=== PATIENT | male | born 1950 | race Native Hawaiian/Other Pacific Islander ===

== ENCOUNTER 2017-09-18 09:59 | Inpatient (IN) | payer MEDICAID ==
[~2017-09-18] VITALS: Ht 175.3 cm; Wt 100.0 kg
[2017-09-18] VITALS (9 sets, daily range): BP systolic 86–142; BP diastolic 54–74; PULSE 70–92; RESP 16–20; TEMP 98.2–99.8; O2SAT 95–100
[~2017-09-18 09:59] MED LIST: 1-ME1LIQ PO; GLIP10TA6 PO; HYDR50TA3 PO; LISI-515 PO; METF-382 PO; [UNRECOGNIZED DRUG - OTHER] SQ
[2017-09-18] MEDS ORDERED: SODIUM CHLORIDE 0.9% FLUSH 10 ML FLUSH IVF PRN (10:15)
--- NOTE | 2017-09-18 10:20 | PD ---
HPI Chief Complaint: Abnormal Results Time Seen by Provider: 10:09 Travel History International Travel<30 days: No Contact w/Intl Traveler<30days: No Traveled to known affect area: No History of Present Illness HPI 67-year-old male presents after being told his blood count was low and to come to the ER. He states this was 2 days ago. He states he came here but then decided to leave before being evaluated. He states that he is not having any black stools, blood in his stool, urine coughing up blood or any other symptoms that he is noticed except for generalized weakness and dizziness. He states that he has not had issues with bleeding in the past that he recalls. Quality is low. He states it was 20%. Duration was told 2 days ago. He states he feels worse when he moves around. He denies other modifying factors. He states he takes a baby aspirin. He denies frequent anti-inflammatory use. PFSH Past Medical History Asthma: No Autoimmune Disease: No Blood Disorders: No Anxiety: Yes Depression: Yes Cancer: No Cardiovascular Problems: Yes (HTN) High Cholesterol: Yes COPD: No Diabetes: Yes Diminished Hearing: No Endocrine: No Gastrointestinal Disorders: No Glaucoma: Yes Genitourinary: No Hepatitis: No Hiatal Hernia: No Hypertension: Yes Immune Disorder: No Musculoskeletal: No Neurologic: No Psychiatric: Yes Reproductive: No Respiratory: Yes ( sleep apnea asthma) Sleep Apnea: Yes Thyroid Disease: No Triglycerides - High: Yes Past Surgical History Genitourinary Surgery: Yes (scrotal surgery) Other Surgery: Yes Social History Alcohol Use: No Tobacco Use: Yes (2ppd) Substance Use: No Allergies-Medications (Allergen,Severity, Reaction): Coded Allergies: Sulfa (Sulfonamide Antibiotics) (Unverified Allergy, Severe, 01/06/17) causes unknown Reported Meds & Prescriptions Reported Meds & Active Scripts Active Lisinopril 20 Mg Tab 20 Mg PO BID Review of Systems Except as stated in HPI: all other systems reviewed are Neg Physical Exam Narrative GENERAL: 67-year-old male in no apparent distress, pale SKIN: Focused skin assessment warm/dry. HEAD: Atraumatic. Normocephalic. EYES: Pupils equal and round. No scleral icterus. No injection or drainage. ENT: No nasal bleeding or discharge. Mucous membranes pink and moist. NECK: Trachea midline. CARDIOVASCULAR: Regular rate and rhythm. RESPIRATORY: No accessory muscle use. Clear to auscultation. Breath sounds equal bilaterally. GASTROINTESTINAL: Abdomen soft, non-tender, nondistended. MUSCULOSKELETAL: No obvious deformities. No clubbing. No cyanosis. RECTAL EXAM: Performed with drop wire operator and after permission. No external hemorrhoid or fissure, stool is brown, non-bloody. NEUROLOGICAL: Awake and alert. No obvious cranial nerve deficits. Motor grossly within normal limits. Normal speech. PSYCHIATRIC: Appropriate mood and affect; insight and judgment normal. Data Data Last Documented VS Vital Signs Date Time Temp Pulse Resp B/P (MAP) Pulse Ox O2 Delivery O2 Flow Rate FiO2 09/18/17 10:18 86 18 98 Room Air 09/18/17 10:18 115/71 (86) 09/18/17 10:03 98.2 Orders Orders Complete Blood Count With Diff (09/18/17 10:14) Comprehensive Metabolic Panel (09/18/17 10:14) Prothrombin Time / Inr (Pt) (09/18/17 10:14) Act Partial Throm Time (Ptt) (09/18/17 10:14) Red Blood Cells (Rbc) (09/18/17 10:14) Ecg Monitoring (09/18/17 10:14) Iv Access Insert/Monitor (09/18/17 10:14) Oximetry (09/18/17 10:14) Sodium Chloride 0.9% Flush (Ns Flush) (09/18/17 10:15) Type And Screen (09/18/17 10:14) Blood Product Administration (09/18/17 10:46) Sodium Chlor 0.9% 250 Ml Inj (Ns 250 Ml (09/18/17 11:00) Labs Laboratory Tests Test 09/18/17 10:20 White Blood Count 6.6 TH/MM3 Red Blood Count 2.70 MIL/MM3 Hemoglobin 7.2 GM/DL Hematocrit 22.4 % Mean Corpuscular Volume 83.1 FL Mean Corpuscular Hemoglobin 26.9 PG Mean Corpuscular Hemoglobin Concent 32.3 % Red Cell Distribution Width 19.0 % Platelet Count 301 TH/MM3 Mean Platelet Volume 7.3 FL CBC Comment AUTO DIFF Differential Total Cells Counted 100 Neutrophils % (Manual) 82 % Band Neutrophils % 1 % Lymphocytes % 11 % Monocytes % 6 % Neutrophils # (Manual) 5.5 TH/MM3 Differential Comment FINAL DIFF MANUAL Platelet Estimate NORMAL Platelet Morphology Comment NORMAL Prothrombin Time 12.5 SEC Prothromb Time International Ratio 1.2 RATIO Activated Partial Thromboplast Time 31.7 SEC Blood Urea Nitrogen 17 MG/DL Creatinine 1.22 MG/DL Random Glucose 332 MG/DL Total Protein 6.9 GM/DL Albumin 2.3 GM/DL Calcium Level 9.5 MG/DL Alkaline Phosphatase 148 U/L Aspartate Amino Transf (AST/SGOT) 18 U/L Alanine Aminotransferase (ALT/SGPT) 21 U/L Total Bilirubin 0.5 MG/DL Sodium Level 131 MEQ/L Potassium Level 5.1 MEQ/L Chloride Level 98 MEQ/L Carbon Dioxide Level 25.2 MEQ/L Anion Gap 8 MEQ/L Estimat Glomerular Filtration Rate 59 ML/MIN MDM Medical Decision Making Medical Screen Exam Complete: Yes Emergency Medical Condition: Yes Medical Record Reviewed: Yes (pmh confirmed) Interpretation(s) CBC & BMP Diagram 09/18/17 10:20 Total Protein 6.9, Albumin 2.3 L, Calcium Level 9.5, Alkaline Phosphatase 148 H , Aspartate Amino Transf (AST/SGOT) 18, Alanine Aminotransferase (ALT/SGPT) 21, Total Bilirubin 0.5 Differential Diagnosis anemia, gi bleed, lab error.... Narrative Course will check labs and reevaluate Patient with confirmation of hemoglobin of 7.2. Will give 2 units of blood and admit to the hospital for further care. HemaPrompt Point of Care Internal Pos. & Neg. Controls: Passed Fecal Specimen Occult Blood: Negative Physician Communication Physician Communication dr gonzalez agrees to admit Diagnosis Primary Impression: Anemia Qualified Codes: D64.9 - Anemia, unspecified Additional Impression: Weakness Admitting Information Admitting Physician Requests: Admit Grisel Bedolla MD Sep 18, 2017 10:20
[2017-09-18 10:37] LABS: HEMATOCRIT 22.4 % (39.0-51.0); HEMOGLOBIN 7.2 GM/DL (13.0-17.0); MEAN CELL VOLUME 83.1 FL (80.0-100.0); MEAN CORPUSCULAR HEMOGLOBIN 26.9 PG (27.0-34.0); MEAN CORPUSCULAR HGB CONC 32.3 % (32.0-36.0); MEAN PLATELET VOLUME 7.3 FL (7.0-11.0); PLATELET COUNT 301 TH/MM3 (150-450); WHITE BLOOD COUNT 6.6 TH/MM3 (4.0-11.0)
[2017-09-18 10:45] LABS: INTERNATIONAL NORMALIZED RATIO 1.2 RATIO; PROTHROMBIN TIME - PATIENT 12.5 SEC (9.8-11.6)
[2017-09-18 10:54] LABS: ALBUMIN 2.3 GM/DL (3.4-5.0); AST (GOT) 18 U/L (15-37); BICARBONATE 25.2 MEQ/L (21.0-32.0); BLOOD UREA NITROGEN 17 MG/DL (7-18); CALCIUM 9.5 MG/DL (8.5-10.1); CHLORIDE 98 MEQ/L (98-107); CREATININE 1.22 MG/DL (0.60-1.30); GLOMERULAR FILTRATION RATE 59 ML/MIN (>89); GLUCOSE,RANDOM 332 MG/DL (74-106); SODIUM (NA) 131 MEQ/L (136-145)
[2017-09-18 10:55] LABS: ALT (GPT) 21 U/L (12-78)
[2017-09-18 10:57] LABS: ALKALINE PHOSPHATASE 148 U/L (45-117); TOTAL BILIRUBIN ADULT 0.5 MG/DL (0.2-1.0); TOTAL PROTEIN 6.9 GM/DL (6.4-8.2)
[2017-09-18] MEDS ORDERED: SODIUM CHLOR 0.9% 250 ML INJ 250 ML IV ONE (11:00)
[2017-09-18 11:14] LABS: BANDS 1 % (0-6); LYMPHOCYTES 11 % (9-44); MONOCYTES 6 % (0-8); NEUTROPHIL # MANUAL DIFF 5.5 TH/MM3 (1.8-7.7); POLYS (SEG NEUTROPHILS) 82 % (16-70)
[2017-09-18] MEDS ORDERED: BISACODYL 10 MG SUPP RECTAL PRN (12:30)
[2017-09-18] MEDS ORDERED: SENNOSIDES 8.6 MG TAB PO PRN (12:30)
[2017-09-18] MEDS ORDERED: LACTULOSE SYRUP 20 GM/30 ML CUP PO PRN (12:30)
[2017-09-18] MEDS ORDERED: SODIUM CHLORIDE 0.9% FLUSH 10 ML FLUSH IV FLUSH PRN (12:30)
[2017-09-18] MEDS ORDERED: NALOXONE HCL 0.4 MG/ML AMP IV PUSH PRN (12:30)
[2017-09-18] MEDS ORDERED: MAGNESIUM HYDROXIDE SUSP 30 ML CUP PO PRN (12:30)
--- NOTE | 2017-09-18 12:44 | HHI.HP ---
[facility] Service [facility] Primary Care Physician Khai Lombardo MD Admission Diagnosis anemia, weakness Diagnoses: Chief Complaint: Dizziness and lightheadedness with anemia Travel History International Travel<30 Days: No Contact w/Intl Traveler <30 Da: No Traveled to Known Affected Are: No History of Present Illness This is a 67-year-old male has been in his usual state of health until a few days ago when he was called by his primary care physician and was asked to go to the hospital because of abnormal lab values. He was told that he is anemic. Patient did not go to the hospital right away but in the last few days, he has been having episodes of dizziness and lightheadedness hence he decided to go to the hospital. Patient denies any chest pain, shortness of breath, nausea , vomiting, palpitations or any bleeding. There is no note of hematuria, melena , hematochezia or any bleeding anywhere else. Patient never had a colonoscopy. Patient admits to having lost 15 pounds in the last 3 months. No history of colon cancer in the family. After sharing the plan with the patient, patient prefers to do the prep and colonoscopy as outpatient. Review of Systems ROS Limitations: Other (All other pertinent systems were reviewed and are negative.) Past Family Social History Past Medical History Diabetes mellitus Hypertension Past Surgical History No previous surgery Reported Medications Lisinopril 20 Mg Tab 20 Mg PO BID Gabapentin 600 Mg Tab 600 Mg PO BID Flomax (Tamsulosin HCl) 0.4 Mg Cap 0.4 Mg PO HS Kombiglyze Xr (Saxagliptin-Metformin ER) 2.5-1,000 Mg Tab 1 Tab PO BID Fenofibrate 48 Mg Tab 48 Mg PO HS Levemir Inj (Insulin Detemir) 1,000 unit/ 10 ML Vial 25 Units SQ DAILY Do not mix with any other Insulin. Allergies: Coded Allergies: Sulfa (Sulfonamide Antibiotics) (Unverified Allergy, Severe, 01/06/17) causes unknown Family History No h/o colon CA DM- sisters, mother Social History Smokes 1 ppd x 40 years No significant alcohol use Physical Exam Vital Signs Vital Signs Date Time Temp Pulse Resp B/P (MAP) Pulse Ox O2 Delivery O2 Flow Rate FiO2 09/18/17 10:18 86 18 98 Room Air 09/18/17 10:18 80 18 115/71 (86) 99 Room Air 09/18/17 10:18 82 18 98 Room Air 09/18/17 10:03 98.2 92 18 127/74 (91) 100 Physical Exam Not in distress, well-nourished, looks stated age PERRL, pale conjunctiva Nose without bleeding Supple neck, no masses or thyromegaly, trachea midline Normal rate and regular rhythm, no murmurs gallops or rubs appreciated. Clear to auscultation and symmetric bilaterally, normal respiratory effort. Normal bowel sounds, soft, non-tender, nondistended, no guarding. Extremities without clubbing, cyanosis, or edema. No rash of generalized distribution. Skin is warm and dry. Dry skin lower back area. AAO x3, no cranial nerve deficits, moves all 4 extremities, no focal neurologic deficits Laboratory Laboratory Tests Test 09/18/17 10:20 White Blood Count 6.6 Red Blood Count 2.70 Hemoglobin 7.2 Hematocrit 22.4 Mean Corpuscular Volume 83.1 Mean Corpuscular Hemoglobin 26.9 Mean Corpuscular Hemoglobin Concent 32.3 Red Cell Distribution Width 19.0 Platelet Count 301 Mean Platelet Volume 7.3 CBC Comment AUTO DIFF Differential Total Cells Counted 100 Neutrophils % (Manual) 82 Band Neutrophils % 1 Lymphocytes % 11 Monocytes % 6 Neutrophils # (Manual) 5.5 Differential Comment FINAL DIFF MANUAL Platelet Estimate NORMAL Platelet Morphology Comment NORMAL Prothrombin Time 12.5 Prothromb Time International Ratio 1.2 Activated Partial Thromboplast Time 31.7 Blood Urea Nitrogen 17 Creatinine 1.22 Random Glucose 332 Total Protein 6.9 Albumin 2.3 Calcium Level 9.5 Alkaline Phosphatase 148 Aspartate Amino Transf (AST/SGOT) 18 Alanine Aminotransferase (ALT/SGPT) 21 Total Bilirubin 0.5 Sodium Level 131 Potassium Level 5.1 Chloride Level 98 Carbon Dioxide Level 25.2 Anion Gap 8 Estimat Glomerular Filtration Rate 59 Result Diagram: 09/18/17 1020 09/18/17 1020 Caprini VTE Risk Assessment Caprini VTE Risk Assessment: Mod/High Risk (score >= 2) Caprini Risk Assessment Model Point Value = 1 Point Value = 2 Point Value = 3 Point Value = 5 Age 41-60 Minor surgery BMI > 25 kg/m2 Swollen legs Varicose veins or History of unexplained or recurrent spontaneous Oral contraceptives or hormone replacement Sepsis (< 1 month) Serious lung disease, including pneumonia (< 1 month) Abnormal pulmonary function Acute myocardial infarction Congestive heart failure (< 1 month) History of inflammatory bowel disease Medical patient at bed rest Age 61-74 Arthroscopic surgery Major open surgery (> 45 min) Laparoscopic surgery (> 45 min) Malignancy Confined to bed (> 72 hours) Immobilizing plaster cast Central venous access Age >= 75 History of VTE Family history of VTE Factor V Leiden Prothrombin [id number] Lupus anticoagulant Anticardiolipin antibodies Elevated serum homocysteine Heparin-induced thrombocytopenia Other congenital or acquired thrombophilia Stroke (< 1 month) Elective arthroplasty Hip, pelvis, or leg fracture Acute spinal cord injury (< 1 month) Prophylaxis Regimen Total Risk Factor Score Risk Level Prophylaxis Regimen 0-1 Low Early ambulation 2 Moderate Order ONE of the following: *Sequential Compression Device (SCD) *Heparin 5000 units SQ BID 3-4 Higher Order ONE of the following medications: *Heparin 5000 units SQ TID *Enoxaparin/Lovenox 40 mg SQ daily (WT < 150 kg, CrCl > 30 mL/min) *Enoxaparin/Lovenox 30 mg SQ daily (WT < 150 kg, CrCl > 10-29 mL/min) *Enoxaparin/Lovenox 30 mg SQ BID (WT < 150 kg, CrCl > 30 mL/min) AND/OR *Sequential Compression Device (SCD) 5 or more Highest Order ONE of the following medications: *Heparin 5000 units SQ TID (Preferred with Epidurals) *Enoxaparin/Lovenox 40 mg SQ daily (WT < 150 kg, CrCl > 30 mL/min) *Enoxaparin/Lovenox 30 mg SQ daily (WT < 150 kg, CrCl > 10-29 mL/min) *Enoxaparin/Lovenox 30 mg SQ BID (WT < 150 kg, CrCl > 30 mL/min) AND *Sequential Compression Device (SCD) Assessment and Plan Assessment and Plan This is a 67-year-old male with history of diabetes and hypertension presenting with symptomatic anemia Symptomatically anemia-patient presented with hemoglobin is 7.2, with dizziness and lightheadedness. Agree with transfusion, 2 units ordered from the emergency department. Patient however does not want to do prep and colonoscopy as inpatient. If patient is asymptomatic after transfusion, possible discharge. Consult gastroenterology to establish care. Hypertension, controlled -continue lisinopril Diabetes mellitus, controlled-continue Levemir, metformin with sliding scale insulin BPH-continue Flomax DVT prophylaxis: SCDs, low risk, pharmacological prophylaxis contraindicated because of possibility of hemorrhage. Letty Griffin MD Sep 18, 2017 12:44
[2017-09-18] MEDS ORDERED: LEVEMIR SQ (13:22)
[2017-09-18] MEDS ORDERED: GABA600T PO (13:22)
[2017-09-18] MEDS ORDERED: FENO48TA PO (13:22)
[2017-09-18] MEDS ORDERED: KOMB2.5T PO (13:22)
[2017-09-18] MEDS ORDERED: TAMS5CAP PO (13:22)
--- NOTE | 2017-09-18 14:02 | PD.CONS ---
HPI History of Present Illness This is a 67 year old obese male who presented to the emergency room on 2017. Patient had been told several days ago per his family physician that he had a low hemoglobin and was anemic and that he needed to go to the hospital for workup. Patient decided to wait several days since he was not feeling that bad before before coming. Over the last 24 hours patient has noted some increased fatigue, dizziness and lightheadedness and is now here for evaluation. Current GI symptoms include heartburn which seems to be worse at night onset for approximately 3 months. Patient states that he does not eat past 5 or 6:00 in the evenings and even water will make his heartburn worse. During that period of time patient did note an increased amount of bloating and gas, but after large amount of burping patient's pain got better. Patient also notes approximately 15 pound weight loss over the past 3 months non- intentional. Currently patient denies any nausea, vomiting, no abdominal pain, no diarrhea or constipation, no hematemesis or melena. Usual bowel movements are daily brown, formed, does not go more than 2 days without defecation. Patient has been a long-term smoker approximately pack a day since the age of 10 , denies any alcohol, no illicit drugs. Patient denies any family history of colon cancer. (Shruthi Brody) PFSH Past Medical History Diabetes mellitus, insulin-dependent Hypertension Tobacco dependence long-term Past Surgical History No previous surgery (Shruthi Brody) Coded Allergies: Sulfa (Sulfonamide Antibiotics) (Unverified Allergy, Severe, 01/06/17) causes unknown Family History DM- sisters, mother No family history of colon cancer Social History Smokes 1 ppd x 40 years+ No significant alcohol use since the No illicit drug (Shruthi Brody) Review of Systems Constitutional: COMPLAINS OF: Fatigue, Weight loss, Dizziness, Change in appetite (Shruthi Brody) GI Exam Vitals I&O Vital Signs Date Time Temp Pulse Resp B/P (MAP) Pulse Ox O2 Delivery O2 Flow Rate FiO2 09/18/17 10:18 86 18 98 Room Air 09/18/17 10:18 80 18 115/71 (86) 99 Room Air 09/18/17 10:18 82 18 98 Room Air 09/18/17 10:03 98.2 92 18 127/74 (91) 100 Laboratory Test 09/18/17 10:20 White Blood Count 6.6 TH/MM3 Red Blood Count 2.70 MIL/MM3 Hemoglobin 7.2 GM/DL Hematocrit 22.4 % Mean Corpuscular Volume 83.1 FL Mean Corpuscular Hemoglobin 26.9 PG Mean Corpuscular Hemoglobin Concent 32.3 % Red Cell Distribution Width 19.0 % Platelet Count 301 TH/MM3 Mean Platelet Volume 7.3 FL CBC Comment AUTO DIFF Differential Total Cells Counted 100 Neutrophils % (Manual) 82 % Band Neutrophils % 1 % Lymphocytes % 11 % Monocytes % 6 % Neutrophils # (Manual) 5.5 TH/MM3 Differential Comment FINAL DIFF MANUAL Platelet Estimate NORMAL Platelet Morphology Comment NORMAL Prothrombin Time 12.5 SEC Prothromb Time International Ratio 1.2 RATIO Activated Partial Thromboplast Time 31.7 SEC Blood Urea Nitrogen 17 MG/DL Creatinine 1.22 MG/DL Random Glucose 332 MG/DL Total Protein 6.9 GM/DL Albumin 2.3 GM/DL Calcium Level 9.5 MG/DL Alkaline Phosphatase 148 U/L Aspartate Amino Transf (AST/SGOT) 18 U/L Alanine Aminotransferase (ALT/SGPT) 21 U/L Total Bilirubin 0.5 MG/DL Sodium Level 131 MEQ/L Potassium Level 5.1 MEQ/L Chloride Level 98 MEQ/L Carbon Dioxide Level 25.2 MEQ/L Anion Gap 8 MEQ/L Estimat Glomerular Filtration Rate 59 ML/MIN Physical Examination HEENT: Pupils round and reactive to light; normocephalic; atraumatic; no jaundice. Speech is clear oral cavity clean NECK: Neck is supple CHEST: No obvious rhonchi or wheezing but does have diminished breath sounds especially in his bases CARDIAC: Regular rate and rhythm without murmur ABDOMEN: Round, large, soft, nondistended, nontender; no hepatosplenomegaly; bowel sounds are present in all four quadrants. EXTREMITIES: No clubbing, cyanosis, or edema. SKIN: Normal; no rash; no jaundice. APPLICATION LEAD: No focal deficits; alert and oriented times three. Mild anxiety (Shruthi Brody) Assessment and Plan Assessment: (1) Anemia ICD Codes: D64.9 - Anemia, unspecified Status: Acute (2) Weakness ICD Codes: R53.1 - Weakness Status: Acute Plan 67-year-old obese male with symptoms of generalized weakness and fatigue and lightheadedness worsened over the last 24 hours. Patient was told by his PCP that he needed to go to the emergency room for a abnormal hemoglobin and anemia but patient decided to wait a few days before coming. Patient's also had a 15 pound weight loss and unintentional decreased appetite over the past 3 months. Patient notes heartburn with some gas and bloating and belching worse at night onset for approximately 3 months patient notes no known food aggregating factors , even water will make him have dyspepsia. No family history of heart disease. No history of EGD or colonoscopy. Patient states Hemoccult in the emergency room was negative he denies any rectal bleeding no diarrhea no constipation no nausea no vomiting. Currently patient is set up to receive 2 units of blood but after discussion considering EGD and colonoscopy patient is requesting to go home and come back and have test done as an outpatient as soon as Thursday. He seems to feel okay other than he is dizziness and lightheadedness, and would rather do the prep at home. Patient has discussed with the ER physician, but decided to do GI consult so he would be familiar with the GI team. Plan Monitor labs with special attention to hemoglobin after transfusion Monitor symptoms of lightheadedness dizziness. Patient initial request was for EGD and colonoscopy sometime next week if possible and be followed by the GI group on an outpatient basis. Further recommendations to follow, spoke with [facility] office so insurance verification and paperwork process for OP EGD/Colonoscopy. Cant be done without precept, so patient has agreed to stay and have early Colonoscopy/EGD done. Called OR , to schedule early am. If possible, patient has personal home issues and is hoping for DC am. Consent for EGD/Colonoscopy in early am. Clear liquids rest of evening. NPO at [place], Ivis prep this pm. This patient will be seen by myself and Dr. Ornelas, note is been done on his behalf (Shruthi Brody) Physician Comments Patient seen and examined Agree with above Continue with current supportive care Monitor labs Plan for an EGD with colonoscopy tomorrow (Sky Ornelas MD) Problem Qualifiers (1) Anemia: Qualified Codes: D64.9 - Anemia, unspecified Shruthi Brody Sep 18, 2017 14:02 Sky Ornelas MD Sep 18, 2017 18:01
[2017-09-18] MEDS ORDERED: GLUCAGON 1 MG/ML VIAL OTHER PRN ×2 (15:00→19:45)
[2017-09-18] MEDS ORDERED: DEXTROSE 50% IN WATER 50 ML VIAL(D50) IV PUSH PRN ×2 (15:00→19:45)
[2017-09-18] MEDS ORDERED: PEG (High)/E-LYTE SOLN 4000 ML BTL PO ONE (16:15)
[2017-09-18] MEDS: DOCUSATE SODIUM 50 MG/SENNA 8.6 MG TAB PO SCH (20:20)
[2017-09-18] MEDS: LOW DOSE INSULIN NOVOLOG SUPPLEMENTAL SCALE SQ SCH (20:21)
[2017-09-18] MEDS: LISINOPRIL 20 MG TAB PO SCH (20:21)
[2017-09-18] MEDS: GABAPENTIN 300 MG CAP PO SCH (20:21)
[2017-09-18] MEDS: SODIUM CHLORIDE 0.9% FLUSH 10 ML FLUSH IV FLUSH SCH (20:22)
[2017-09-18] MEDS ORDERED: INSULIN DETEMIR 100 UNITS/ML VIAL SQ SCH (21:00)
[2017-09-18] MEDS ORDERED: FENOFIBRATE 48 MG TAB PO SCH (21:00)
[2017-09-18] MEDS ORDERED: TAMSULOSIN HCL 0.4 MG CAP PO SCH (21:00)
[2017-09-18] MEDS ORDERED: KOMBIGLYZE PO SCH (21:00)
[2017-09-19] MEDS ORDERED: INSULIN HUMAN REGULAR 1,000 UNITS/10 ML VIAL SQ PRN (01:15)
[2017-09-19] MEDS ORDERED: POVIDONE IODINE 5% (ANTISEPSIS KIT) 4 APPLICATIONS EACH NARE PRN (01:15)
[2017-09-19] MEDS ORDERED: CHLORHEXIDINE GLUCONATE 2 % 1 PACK (2 CLOTHS) TOPICAL PRN (01:15)
[2017-09-19] MEDS ORDERED: SODIUM CHLORID 0.9% 500 ML IV PRN (01:15)
[2017-09-19] MEDS ORDERED: LACTATED RINGER'S 1000 ML IV PRN (01:15)
[2017-09-19] MEDS ORDERED: METOPROLOL TARTRATE 25 MG TAB PO PRN (01:15)
[2017-09-19 01:44] VITALS: BP 108/59; PULSE 75; RESP 18; TEMP 99.6; O2SAT 93
[2017-09-19 03:58] VITALS: BP 90/55; PULSE 68; RESP 18; TEMP 98.7; O2SAT 94
[2017-09-19 06:42] LABS: BICARBONATE 26.2 MEQ/L (21.0-32.0); CALCIUM 9.2 MG/DL (8.5-10.1); CREATININE 1.05 MG/DL (0.60-1.30)
[2017-09-19 06:45] VITALS: BP 108/53; PULSE 73; RESP 19; TEMP 98.9; O2SAT 96
[2017-09-19] MEDS: LOW DOSE INSULIN NOVOLOG SUPPLEMENTAL SCALE SQ SCH ×2 (08:00→12:00)
[2017-09-19] MEDS: SODIUM CHLORIDE 0.9% FLUSH 10 ML FLUSH IV FLUSH SCH (08:00)
[2017-09-19] MEDS ORDERED: INSULIN DETEMIR 100 UNITS/ML VIAL SQ SCH (09:00)
[2017-09-19] MEDS ORDERED: LIDOCAINE HCL 1% PF 5 ML AMPULE ONE (09:15)
--- NOTE | 2017-09-19 10:18 | EKG ---
Date Performed: 09/19/2017 Time Performed: 05:54:16 PTAGE: 67 years EKG: Probable Sinus rhythm Abnormal ECG PREVIOUS TRACING : 09/05/2009 10.09 Since the previous tracing, no significant change noted DOCTOR: Ozzie Reddy Interpretating Date/Time 09/19/2017 10:17:40
--- NOTE | 2017-09-19 10:48 | HHI.PR ---
Subjective Remarks Follow-up symptomatic anemia September 19, 2017-patient seen and examined, currently n.p.o. and had a full panendoscopy. Denies any bleeding. Objective Vitals Vital Signs Date Time Temp Pulse Resp B/P (MAP) Pulse Ox O2 Delivery O2 Flow Rate FiO2 09/19/17 10:15 64 22 93/60 (71) 96 Room Air 09/19/17 10:00 69 23 87/52 (64) 97 Room Air 09/19/17 08:57 98.2 71 24 83/54 (64) 94 Room Air 09/19/17 06:45 98.9 73 19 108/53 (71) 96 09/19/17 03:58 98.7 68 18 90/55 (67) 94 09/19/17 01:44 99.6 75 18 108/59 (75) 93 09/18/17 21:15 98.7 80 20 138/70 (92) 97 09/18/17 21:00 98.9 82 20 142/72 (95) 98 09/18/17 20:03 98.9 78 18 117/66 (83) 98 09/18/17 18:45 99.2 75 17 102/58 95 09/18/17 16:03 99.8 77 16 93/54 96 09/18/17 16:00 99.0 70 16 115/70 (85) 96 09/18/17 15:48 98.2 77 16 86/54 97 09/18/17 14:21 I/O 09/18/17 09/18/17 09/18/17 09/19/17 09/19/17 09/19/17 07:00 15:00 23:00 07:00 15:00 23:00 Intake Total 480 ml 670 ml Balance 480 ml 670 ml Intake Oral 240 ml Packed Cells 350 ml 400 ml Blood Product IV Normal Saline Flush 130 ml 30 ml # Voids 2 # Bowel Movements 0 Result Diagram: 09/18/17 1020 09/19/17 0422 Objective Remarks GENERAL: NAD SKIN: Warm and dry. HEAD: Normocephalic. EYES: No scleral icterus. No injection or drainage. NECK: Supple, trachea midline. No JVD or lymphadenopathy. CARDIOVASCULAR: Regular rate and rhythm without murmurs, gallops, or rubs. RESPIRATORY: Breath sounds equal bilaterally. No accessory muscle use. GASTROINTESTINAL: Abdomen soft, non-tender, nondistended. MUSCULOSKELETAL: No cyanosis, or edema. BACK: Nontender without obvious deformity. No CVA tenderness. A/P Problem List: (1) Symptomatic anemia ICD Code: D64.9 - Anemia, unspecified (2) Normochromic normocytic anemia ICD Code: D64.9 - Anemia, unspecified (3) Diabetes mellitus ICD Code: E11.9 - Diabetes mellitus Status: Acute (4) Hyperlipidemia ICD Code: E78.5 - Hyperlipidemia Status: Acute (5) Neuropathy ICD Code: G62.9 - Neuropathy Status: Acute (6) Hypertension ICD Code: I10 - Hypertension Status: Acute Assessment and Plan 67-year-old man with Symptomatic anemia Normochromic normocytic anemia s/p 2 units PRBCs transfused September 18, 2017 Appreciate input from GI for panendoscopy today September 19, 2017 Continue H&H monitoring and transfuse accordingly Continue PPI Diabetes type 2, hypertension, BPH Continue outpatient medications DVT prophylaxis: Chemical anti prophylaxis is contraindicated secondary to GI bleed Lester Mcconnell MD Sep 19, 2017 10:48
[2017-09-19 11:42] LABS: HEMATOCRIT 25.4 % (39.0-51.0); HEMOGLOBIN 8.6 GM/DL (13.0-17.0)
[2017-09-19 12:00] VITALS: BP 100/61; PULSE 76; RESP 18; TEMP 98.4; O2SAT 92
[2017-09-19] MEDS ORDERED: LIDOCAINE HCL 1% PF 5 ML SYRINGE OTHER ONE (12:00)
[2017-09-19] MEDS ORDERED: PROPOFOL 200 MG/20 ML AMP IV ONE (12:00)
[2017-09-19] MEDS ORDERED: SODIUM CHLORID 0.9% 500 ML INJ 500 ML IV ONE (12:00)
[2017-09-19] MEDS ORDERED: PHENYLEPH/NS 1000 MCG/10 ML SYR IV ONE (12:00)
[2017-09-19] MEDS ORDERED: ePHEDrine/NS 25 MG/5 ML SYRINGE IV ONE (12:00)
[2017-09-19] MEDS: GABAPENTIN 300 MG CAP PO SCH (12:36)
[2017-09-19] MEDS: LISINOPRIL 20 MG TAB PO SCH (12:36)
[2017-09-19] MEDS: DOCUSATE SODIUM 50 MG/SENNA 8.6 MG TAB PO SCH (12:37)
--- NOTE | 2017-09-19 13:25 | HHI.PR ---
Addendum to Inpatient Note Addendum Reason: Additional Documentation Additional Information Discharge patient to home Condition on discharge: Improved Regular Diet as tolerated Ad Jordana activity Rx written:Protonix 40mg Qday Follow-up with primary care physician Lester Mcconnell MD Sep 19, 2017 13:25
[2017-09-19] MEDS ORDERED: PROT40TA PO (13:26)
== END 2017-09-19 14:24 | disposition home or self-care (01) | DRG 812 ==
LOC: NEPE 09:59 → INTOOBSV 12:21 → NEDA 12:21 → N06A 14:20 → OBSVTOIN 14:46
PROVIDERS: ADMIT Hospitalist; ATTEND Hospitalist
DX: D64.9 Anemia, unspecified (principal); E11.40 Type 2 diabetes mellitus with diabetic neuropathy, unspecified; I10 Essential (primary) hypertension; N40.0 Benign prostatic hyperplasia without lower urinary tract symptoms; F17.210 Nicotine dependence, cigarettes, uncomplicated; R53.1 Weakness; E78.5 Hyperlipidemia, unspecified; R63.4 Abnormal weight loss; Z68.32 Body mass index [BMI] 32.0-32.9, adult; Z79.4 Long term (current) use of insulin
CPT/HCPCS: 36430; 80048; 80053; 82948; 85007; 85014; 85018; 85027; 85610; 85730; 86850; 86900; 86901; 86920; 88305; 93005; 99285; J1815; J2370; J7040; P9016

== ENCOUNTER 2017-10-16 21:55 | Inpatient (IN) | payer MEDICAID ==
[~2017-10-16] VITALS: Ht 182.9 cm; Wt 105.3 kg
[~2017-10-16 21:55] MED LIST changes: -1-ME1LIQ PO; +FENO48TA PO; +GABA600T PO; -GLIP10TA6 PO; -HYDR50TA3 PO; +KOMB2.5T PO; +LEVEMIR SQ; -METF-382 PO; +PROT40TA PO; +TAMS5CAP PO; -[UNRECOGNIZED DRUG - OTHER] SQ
[2017-10-16 22:16] VITALS: BP 107/57; PULSE 69; RESP 18; TEMP 97.3; O2SAT 100
[2017-10-16] MEDS ORDERED: SODIUM CHLOR 0.9% 1000 ML INJ 1,000 ML IV ONE (22:55)
[2017-10-16] MEDS ORDERED: SODIUM CHLORIDE 0.9% FLUSH 10 ML FLUSH IVF PRN (23:00)
--- NOTE | 2017-10-16 23:00 | PD ---
HPI Chief Complaint: Dizziness Time Seen by Provider: 22:45 Travel History International Travel<30 days: No Contact w/Intl Traveler<30days: No Traveled to known affect area: No History of Present Illness HPI This is a 67-year-old male who presents for evaluation of lightheadedness and dyspnea on exertion. Symptoms have been going on for the past 3-4 days. He reports that symptoms are constant but worse with exertion, worse when he is trying to drive. He reports associated decreased appetite. Denies chest pain, cough or congestion, abdominal pain, nausea or vomiting, diarrhea or constipation, headache, blurred vision. Does not recall any hematochezia or black or tarry stool. He has never had these symptoms before. Per chart review he was admitted here in late August for symptomatic anemia. It appears that the patient underwent a colonoscopy and endoscopy during his hospital stay. The full reports are not available to be viewed but it appears that Dr. 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 He takes a baby aspirin on a daily basis. He has no other complaints at this time. PFSH Past Medical History Asthma: No Autoimmune Disease: No Blood Disorders: No Anxiety: Yes Depression: Yes Cancer: No Cardiovascular Problems: Yes (HTN) High Cholesterol: Yes COPD: No Diabetes: Yes Patient Takes Glucophage: No Diminished Hearing: No Endocrine: No Gastrointestinal Disorders: No Glaucoma: Yes Genitourinary: No Hepatitis: No Hiatal Hernia: No Hypertension: Yes Immune Disorder: No Medical other: Yes ('back and neck problems) Musculoskeletal: No Neurologic: No Psychiatric: Yes Reproductive: No Respiratory: Yes ( sleep apnea, asthma) Immunizations Current: Yes Sleep Apnea: Yes Thyroid Disease: No Triglycerides - High: Yes Past Surgical History Genitourinary Surgery: Yes (scrotal surgery) Other Surgery: Yes Social History Alcohol Use: No Tobacco Use: Yes (2ppd) Substance Use: No Allergies-Medications (Allergen,Severity, Reaction): Coded Allergies: Sulfa (Sulfonamide Antibiotics) (Unverified Allergy, Severe, 10/16/17) causes unknown Reported Meds & Prescriptions Reported Meds & Active Scripts Active Protonix (Pantoprazole Sodium) 40 Mg Tab 40 Mg PO DAILY Lisinopril 20 Mg Tab 20 Mg PO BID Reported Aspirin Low Dose (Aspirin) 81 Mg Chew 81 Mg CHEW DAILY Gabapentin 600 Mg Tab 600 Mg PO BID Flomax (Tamsulosin HCl) 0.4 Mg Cap 0.4 Mg PO HS Kombiglyze Xr (Saxagliptin-Metformin ER) 2.5-1,000 Mg Tab 1 Tab PO BID Fenofibrate 48 Mg Tab 48 Mg PO HS Levemir Inj (Insulin Detemir) 1,000 unit/ 10 ML Vial 25 Units SQ DAILY Do not mix with any other Insulin. Review of Systems Except as stated in HPI: all other systems reviewed are Neg Physical Exam Narrative GENERAL: Well-developed well-nourished male in no acute distress SKIN: Warm and dry. HEAD: Atraumatic. Normocephalic. EYES: Pupils equal and round. No scleral icterus. No injection or drainage. ENT: No nasal bleeding or discharge. Mucous membranes pink and moist. NECK: Trachea midline. No JVD. CARDIOVASCULAR: Regular rate and rhythm. No murmur appreciated. RESPIRATORY: No accessory muscle use. Clear to auscultation. Breath sounds equal bilaterally. GASTROINTESTINAL: Abdomen soft, non-tender, nondistended. Hepatic and splenic margins not palpable. Rectal examination reveals brown stool Hemoccult positive. MUSCULOSKELETAL: No obvious deformities. No clubbing. No cyanosis. No edema. NEUROLOGICAL: Awake and alert. No obvious cranial nerve deficits. Motor grossly within normal limits. Normal speech. Data Data Last Documented VS Vital Signs Date Time Temp Pulse Resp B/P (MAP) Pulse Ox O2 Delivery O2 Flow Rate FiO2 10/16/17 22:16 97.3 69 18 107/57 (74) 100 Orders Orders Electrocardiogram (10/16/17 22:55) Complete Blood Count With Diff (10/16/17 22:55) Comprehensive Metabolic Panel (10/16/17 22:55) Magnesium (Mg) (10/16/17 22:55) B-Type Natriuretic Peptide (10/16/17 22:55) Ckmb (Isoenzyme) Profile (10/16/17 22:55) Troponin I (10/16/17 22:55) Act Partial Throm Time (Ptt) (10/16/17 22:55) Prothrombin Time / Inr (Pt) (10/16/17 22:55) Chest, Single Ap (10/16/17 22:55) Ct Brain W/O Iv Contrast(Rout) (10/16/17 22:55) Ecg Monitoring (10/16/17 22:55) Iv Access Insert/Monitor (10/16/17 22:55) Oximetry (10/16/17 22:55) Sodium Chloride 0.9% Flush (Ns Flush) (10/16/17 23:00) Sodium Chlor 0.9% 1000 Ml Inj (Ns 1000 M (10/16/17 22:55) Type And Screen (10/16/17 22:55) Blood Product Administration (10/17/17 00:00) Sodium Chlor 0.9% 250 Ml Inj (Ns 250 Ml (10/17/17 00:00) Pantoprazole Inj (Protonix Inj) (10/17/17 00:15) Red Blood Cells (Rbc) (10/16/17 23:35) Admit Order (Ed Use Only) (10/17/17 00:18) Labs Laboratory Tests Test 10/16/17 23:35 White Blood Count 8.1 TH/MM3 Red Blood Count 2.76 MIL/MM3 Hemoglobin 7.4 GM/DL Hematocrit 22.7 % Mean Corpuscular Volume 82.0 FL Mean Corpuscular Hemoglobin 27.0 PG Mean Corpuscular Hemoglobin Concent 32.9 % Red Cell Distribution Width 21.9 % Platelet Count 353 TH/MM3 Mean Platelet Volume 7.5 FL Neutrophils (%) (Auto) 67.1 % Lymphocytes (%) (Auto) 15.4 % Monocytes (%) (Auto) 15.8 % Eosinophils (%) (Auto) 0.9 % Basophils (%) (Auto) 0.8 % Neutrophils # (Auto) 5.4 TH/MM3 Lymphocytes # (Auto) 1.2 TH/MM3 Monocytes # (Auto) 1.3 TH/MM3 Eosinophils # (Auto) 0.1 TH/MM3 Basophils # (Auto) 0.1 TH/MM3 CBC Comment DIFF FINAL Differential Comment Prothrombin Time 12.4 SEC Prothromb Time International Ratio 1.2 RATIO Activated Partial Thromboplast Time 31.5 SEC Blood Urea Nitrogen 31 MG/DL Creatinine 1.74 MG/DL Random Glucose 110 MG/DL Albumin 2.2 GM/DL Calcium Level 10.0 MG/DL Magnesium Level 2.1 MG/DL Aspartate Amino Transf (AST/SGOT) 29 U/L Alanine Aminotransferase (ALT/SGPT) 28 U/L Sodium Level 141 MEQ/L Potassium Level 4.4 MEQ/L Chloride Level 104 MEQ/L Carbon Dioxide Level 25.2 MEQ/L Anion Gap 12 MEQ/L Estimat Glomerular Filtration Rate 39 ML/MIN B-Type Natriuretic Peptide 132 PG/ML MDM Medical Decision Making Medical Screen Exam Complete: Yes Emergency Medical Condition: Yes Medical Record Reviewed: Yes Interpretation(s) Chest x-ray, CT the brain negative for acute process. Differential Diagnosis Symptomatic anemia, CHF, pulmonary embolism, dehydration, electrolyte abnormality, vertigo, intracranial mass, orthostatic hypotension Narrative Course The patient was placed on ECG monitoring pulse oximetry. A 12 EKG was obtained. Lab work, chest x-ray, CT the brain ordered. 1 L IV fluids ordered, Protonix administered. Hemoglobin is 7.4, patient has guaiac positive stool, 2 units packed red blood cells ordered. His GFR is 39 which is decreased from most recent GFR in August. The patient will be admitted for further evaluation and treatment. [facility]pt Point of Care Internal Pos. & Neg. Controls: Passed Fecal Specimen Occult Blood: Positive Diagnosis Primary Impression: GI bleed Additional Impressions: Anemia Acute renal insufficiency Admitting Information Admitting Physician Requests: Admit Emmanuel Rasmussen October 16, 2017 23:00
--- NOTE | 2017-10-16 23:17 | RADRPT ---
EXAM DATE: 10/16/2017 11:10 PM EDT AGE/SEX: 67 years / Male INDICATIONS: Palpitations. CLINICAL DATA: This is the patient's initial encounter. Patient reports that signs and symptoms have been present for 1 day and indicates a pain score of 0/10. MEDICAL/SURGICAL HISTORY: None. None. COMPARISON: No prior [place] exams available for comparison. FINDINGS: Trace bibasilar atelectasis. No pleural effusion or pneumothorax. Heart size upper limits of normal. CONCLUSION: Trace bibasilar atelectasis. Otherwise within normal limits. Electronically signed by: Khai Downing MD 10/16/2017 11:16 PM EDT
--- NOTE | 2017-10-16 23:18 | RADRPT ---
EXAM DATE: 10/16/2017 11:10 PM EDT AGE/SEX: 67 years / Male INDICATIONS: Dizziness. CLINICAL DATA: This is the patient's initial encounter. Patient reports that signs and symptoms have been present for 1 day and indicates a pain score of 0/10. MEDICAL/SURGICAL HISTORY: Hypertension. Diabetes mellitus type II. None. RADIATION DOSE: 56.35 CTDI (mGy) COMPARISON: No prior [place] exams available for comparison. TECHNIQUE: CT of the head without contrast. Using automated exposure control and adjustment of the mA and/or kV according to patient size, radiation dose was kept as low as reasonably achievable to ob tain optimal diagnostic quality images. FINDINGS: Cerebrum: The ventricles are normal for age. No evidence of midline shift, mass lesion, hemorrhage or acute infarction. No extraaxial fluid collections are seen. Posterior Fossa: The cerebellum and brainstem are intact. The 4th ventricle is midline. The cerebe llopontine angle is unremarkable. Extracranial: The visualized portion of the orbits is intact. Skull: The calvaria is intact. No evidence of skull fracture. CONCLUSION: 1. No acute intracranial abnormality. Electronically signed by: Khai Downing MD 10/16/2017 11:17 PM EDT
[2017-10-16] MEDS ORDERED: ASPI81CH6 CHEW (23:19)
[2017-10-16 23:59] LABS: AUTOMATED NEUTROPHIL # 5.4 TH/MM3 (1.8-7.7); BASOPHIL # 0.1 TH/MM3 (0-0.2); BASOPHIL % 0.8 % (0.0-2.0); EOSINOPHIL # 0.1 TH/MM3 (0-0.4); EOSINOPHIL % 0.9 % (0.0-4.0); HEMATOCRIT 22.7 % (39.0-51.0); HEMOGLOBIN 7.4 GM/DL (13.0-17.0); INTERNATIONAL NORMALIZED RATIO 1.2 RATIO; LYMPH % 15.4 % (9.0-44.0); LYMPHOCYTE # 1.2 TH/MM3 (1.0-4.8); MEAN CORPUSCULAR HGB CONC 32.9 % (32.0-36.0); MEAN PLATELET VOLUME 7.5 FL (7.0-11.0); MONO % 15.8 % (0.0-8.0); MONOCYTE # 1.3 TH/MM3 (0-0.9); NEUT % 67.1 % (16.0-70.0); PLATELET COUNT 353 TH/MM3 (150-450); PROTHROMBIN TIME - PATIENT 12.4 SEC (9.8-11.6); RED BLOOD COUNT 2.76 MIL/MM3 (4.50-5.90); RED CELL DISTRIBUTION WIDTH 21.9 % (11.6-17.2); WHITE BLOOD COUNT 8.1 TH/MM3 (4.0-11.0)
[2017-10-17] VITALS (17 sets, daily range): BP systolic 73–111; BP diastolic 47–70; PULSE 60–90; RESP 16–19; TEMP 98–98.9; O2SAT 94–98
[2017-10-17] MEDS ORDERED: SODIUM CHLOR 0.9% 250 ML INJ 250 ML IV ONE
[2017-10-17 00:04] LABS: ALBUMIN 2.2 GM/DL (3.4-5.0); ALT (GPT) 28 U/L (12-78); AST (GOT) 29 U/L (15-37); BICARBONATE 25.2 MEQ/L (21.0-32.0); BLOOD UREA NITROGEN 31 MG/DL (7-18); CHLORIDE 104 MEQ/L (98-107); CREATININE 1.74 MG/DL (0.60-1.30); GLOMERULAR FILTRATION RATE 39 ML/MIN (>89); GLUCOSE,RANDOM 110 MG/DL (74-106); MAGNESIUM 2.1 MG/DL (1.5-2.5); SODIUM (NA) 141 MEQ/L (136-145)
[2017-10-17 00:08] LABS: ALKALINE PHOSPHATASE 225 U/L (45-117); TOTAL BILIRUBIN ADULT 0.7 MG/DL (0.2-1.0); TOTAL PROTEIN 7.3 GM/DL (6.4-8.2); TROPONIN I LESS THAN 0.02 NG/ML (0.02-0.05)
[2017-10-17] MEDS ORDERED: PANTOPRAZOLE SODIUM 40 MG VIAL IVP ONE (00:15)
[2017-10-17] MEDS ORDERED: ACETAMINOPHEN 325 MG TAB PO PRN (00:30)
[2017-10-17] MEDS ORDERED: SODIUM CHLORIDE 0.9% FLUSH 10 ML FLUSH IV FLUSH PRN (00:30)
[2017-10-17] MEDS ORDERED: BISACODYL 10 MG SUPP RECTAL PRN (00:30)
[2017-10-17] MEDS ORDERED: SENNOSIDES 8.6 MG TAB PO PRN (00:30)
[2017-10-17] MEDS ORDERED: MORPHINE SULFATE 4 MG/ML INJ IV PUSH PRN (00:30)
[2017-10-17] MEDS ORDERED: METOCLOPRAMIDE HCL 10 MG/2 ML VIAL IV PUSH PRN (00:30)
[2017-10-17] MEDS ORDERED: LACTULOSE SYRUP 20 GM/30 ML CUP PO PRN (00:30)
[2017-10-17] MEDS ORDERED: ACETAMINOPHEN/HYDROcodone 325 MG/5 MG TAB PO PRN (00:30)
[2017-10-17] MEDS ORDERED: MAGNESIUM HYDROXIDE SUSP 30 ML CUP PO PRN (00:30)
[2017-10-17] MEDS: SODIUM CHLOR 0.9% 1000 ML INJ 1,000 ML IV SCH ×3 (00:43→21:13)
[2017-10-17] MEDS ORDERED: SODIUM CHLORID 0.9% 500 ML INJ 500 ML IV ONE (01:45)
[2017-10-17] MEDS ORDERED: DEXTROSE 50% IN WATER 50 ML VIAL(D50) IV PUSH PRN (01:45)
[2017-10-17] MEDS ORDERED: GLUCAGON 1 MG/ML VIAL OTHER PRN (01:45)
--- NOTE | 2017-10-17 01:54 | HHI.HP ---
HPI Service [facility] Primary Care Physician Unknown Admission Diagnosis GI bleed, renal insufficiency, symptomatic anemia Diagnoses: (1) GI bleed Diagnosis: Principal (2) Anemia Diagnosis: Principal (3) LUIS (acute kidney injury) Diagnosis: Principal (4) DM (diabetes mellitus) Diagnosis: Principal (5) Tobacco abuse Diagnosis: Principal Travel History International Travel<30 Days: No Contact w/Intl Traveler <30 Da: No Traveled to Known Affected Are: No History of Present Illness This is a 67-year-old male with a PMH of Anxiety, Depression, HTN, DM, Glaucoma , Sleep Apnea and Tobacco Abuse who presented to the ER w/ c/o generalized weakness, dizziness and lethargy for 3-4 days. States symptoms worse w/ exertion. No nausea, vomiting, diarrhea, chest pain or sick contacts. Does note decreased appetite. On arrival, BP 107/57, HR 69, O2 sat 100% RA, Afebrile. Hemoglobin 7.4, previously 8.6 on 09/19/2017. Per review of records, pt admitted 09/15/17 for Anemia, Hgb 7.2 at that time, s/p EGD/Colonoscopy by Dr. Ornelas-full records unavailable, but per Pathology reports, pt w/ Reflux Esophagitis and Hemorrhoids, s/p transfusion at that time w/ Hgb 8.6 at time of d/c. Creatinine 1.74, previously 1.05 on 09/19/17. Hemoccult + on exam. On ASA at home. 2u pRBC ordered for transfusion. Pt without complaints at this time. Review of Systems Except as stated in HPI: all other systems reviewed are Neg ROS: 14 point review of systems otherwise negative. Past Family Social History Past Medical History PMH: Anxiety, Depression, HTN, DM, Glaucoma, Sleep Apnea and Tobacco Abuse Past Surgical History PAST SURGICAL HISTORY: Scrotal Surgery Allergies: Coded Allergies: Sulfa (Sulfonamide Antibiotics) (Unverified Allergy, Severe, 10/16/17) causes unknown Family History PAST FAMILY HISTORY: Reviewed. No h/o DM or CAD Social History PAST SOCIAL HISTORY: Negative for alcohol or drugs. Smokes 2ppd. Physical Exam Vital Signs Vital Signs Date Time Temp Pulse Resp B/P (MAP) Pulse Ox O2 Delivery O2 Flow Rate FiO2 10/17/17 01:09 98.0 87 18 99/57 96 10/17/17 00:54 98.1 89 18 105/57 98 10/16/17 22:16 97.3 69 18 107/57 (74) 100 Physical Exam PE: GENERAL: Very pleasant middle-aged male in no acute distress. HEENT: PERRLA, EOMI. No scleral icterus or conjunctival pallor. No lid lag or facial droop. CARDIOVASCULAR: Regular rate and rhythm. No obvious murmurs to auscultation. No chest tenderness to palpation. RESPIRATORY: No obvious rhonchi or wheezing. Clear to auscultation. Breath sounds equal bilaterally. GASTROINTESTINAL: Abdomen soft, non-tender, nondistended. BS normal. MUSCULOSKELETAL: Extremities without clubbing, cyanosis, or edema. No obvious deformities. NEUROLOGICAL: Awake, alert and oriented x4. No focal neurologic deficits. Moving both upper and lower extremities spontaneously. Laboratory Laboratory Tests Test 10/16/17 23:35 White Blood Count 8.1 Red Blood Count 2.76 Hemoglobin 7.4 Hematocrit 22.7 Mean Corpuscular Volume 82.0 Mean Corpuscular Hemoglobin 27.0 Mean Corpuscular Hemoglobin Concent 32.9 Red Cell Distribution Width 21.9 Platelet Count 353 Mean Platelet Volume 7.5 Neutrophils (%) (Auto) 67.1 Lymphocytes (%) (Auto) 15.4 Monocytes (%) (Auto) 15.8 Eosinophils (%) (Auto) 0.9 Basophils (%) (Auto) 0.8 Neutrophils # (Auto) 5.4 Lymphocytes # (Auto) 1.2 Monocytes # (Auto) 1.3 Eosinophils # (Auto) 0.1 Basophils # (Auto) 0.1 CBC Comment DIFF FINAL Differential Comment Prothrombin Time 12.4 Prothromb Time International Ratio 1.2 Activated Partial Thromboplast Time 31.5 Blood Urea Nitrogen 31 Creatinine 1.74 Random Glucose 110 Total Protein 7.3 Albumin 2.2 Calcium Level 10.0 Magnesium Level 2.1 Alkaline Phosphatase 225 Aspartate Amino Transf (AST/SGOT) 29 Alanine Aminotransferase (ALT/SGPT) 28 Total Bilirubin 0.7 Sodium Level 141 Potassium Level 4.4 Chloride Level 104 Carbon Dioxide Level 25.2 Anion Gap 12 Estimat Glomerular Filtration Rate 39 Total Creatine Kinase 16 Troponin I LESS THAN 0.02 B-Type Natriuretic Peptide 132 Result Diagram: 10/16/17 2335 10/16/17 233 Symone VTE Risk Assessment Symone VTE Risk Assessment: No/Low Risk (score <= 1) VTE Pharm Contraindication: Active bleeding Symone Risk Assessment Model Point Value = 1 Point Value = 2 Point Value = 3 Point Value = 5 Age 41-60 Minor surgery BMI > 25 kg/m2 Swollen legs Varicose veins or History of unexplained or recurrent spontaneous Oral contraceptives or hormone replacement Sepsis (< 1 month) Serious lung disease, including pneumonia (< 1 month) Abnormal pulmonary function Acute myocardial infarction Congestive heart failure (< 1 month) History of inflammatory bowel disease Medical patient at bed rest Age 61-74 Arthroscopic surgery Major open surgery (> 45 min) Laparoscopic surgery (> 45 min) Malignancy Confined to bed (> 72 hours) Immobilizing plaster cast Central venous access Age >= 75 History of VTE Family history of VTE Factor V Leiden Prothrombin [id number] Lupus anticoagulant Anticardiolipin antibodies Elevated serum homocysteine Heparin-induced thrombocytopenia Other congenital or acquired thrombophilia Stroke (< 1 month) Elective arthroplasty Hip, pelvis, or leg fracture Acute spinal cord injury (< 1 month) Prophylaxis Regimen Total Risk Factor Score Risk Level Prophylaxis Regimen 0-1 Low Early ambulation 2 Moderate Order ONE of the following: *Sequential Compression Device (SCD) *Heparin 5000 units SQ BID 3-4 Higher Order ONE of the following medications: *Heparin 5000 units SQ TID *Enoxaparin/Lovenox 40 mg SQ daily (WT < 150 kg, CrCl > 30 mL/min) *Enoxaparin/Lovenox 30 mg SQ daily (WT < 150 kg, CrCl > 10-29 mL/min) *Enoxaparin/Lovenox 30 mg SQ BID (WT < 150 kg, CrCl > 30 mL/min) AND/OR *Sequential Compression Device (SCD) 5 or more Highest Order ONE of the following medications: *Heparin 5000 units SQ TID (Preferred with Epidurals) *Enoxaparin/Lovenox 40 mg SQ daily (WT < 150 kg, CrCl > 30 mL/min) *Enoxaparin/Lovenox 30 mg SQ daily (WT < 150 kg, CrCl > 10-29 mL/min) *Enoxaparin/Lovenox 30 mg SQ BID (WT < 150 kg, CrCl > 30 mL/min) AND *Sequential Compression Device (SCD) Assessment and Plan Problem List: (1) GI bleed ICD Code: K92.2 - Gastrointestinal hemorrhage, unspecified Status: Acute (2) Anemia ICD Code: D64.9 - Anemia, unspecified Status: Acute (3) LUIS (acute kidney injury) ICD Code: N17.9 - Acute kidney failure, unspecified (4) DM (diabetes mellitus) ICD Code: E11.9 - Type 2 diabetes mellitus without complications (5) Tobacco abuse ICD Code: Z72.0 - Tobacco abuse Status: Acute Assessment and Plan A/P: 1. GI Bleed: +Hemoccult on exam, s/p Protonix IV in ER, will start on Protonix gtt, consult GI for further evaluation/intervention. Previous admit for similar, full records unavailable but appears he is s/p EGD/ Colonoscopy with no obvious bleed. Hold ASA. Repeat Hgb. 2. Anemia: secondary to above. hgb 7.4, previously 8.6 on 09/19/17, 2u pRBC ordered for transfusion, repeat Hgb/Hct once transfusion completed. Monitor vitals closely. 3. LUIS: Creatinine 1.74, previously 1.05 on 09/19/17, IVF for hydration, repeat labs in am. 4. DM: Sliding scale w/ Accu-Cheks, hold Metformin for now as NPO. 5. Tobacco Abuse: Pt counselled. NicoDerm prn if needed. 6. DVT Prophylaxis: Pharmacologic contraindication in light of acute GI Bleed 7. Social work for d/c planning as needed 8. Case discussed w/ ER physician at length, labs/records/imaging reviewed by me. Physician Certification 2 Midnight Certification Type: Admission for Inpatient Services Order for Inpatient Services The services are ordered in accordance with Medicare regulations or non- Medicare payer requirements, as applicable. In the case of services not specified as inpatient-only, they are appropriately provided as inpatient services in accordance with the 2-midnight benchmark. Estimated LOS (days): 2 days is the estimated time the patient will need to remain in the hospital, assuming treatment plan goals are met and no additional complications. Post-Hospital Plan: Not yet determined Bella Contreras MD October 17, 2017 01:54
[2017-10-17] MEDS: PANTOPRAZOLE INJ 80 MG in SODIUM CHLORIDE 0.9% INJ 100 ML IV SCH ×3 (06:21→21:21)
[2017-10-17] MEDS: INSULIN ASPART SUPPLEMENTAL SCALE SQ SCH ×4 (08:00→21:16)
[2017-10-17] MEDS: SODIUM CHLORIDE 0.9% FLUSH 10 ML FLUSH IV FLUSH SCH ×2 (08:48→21:14)
[2017-10-17] MEDS: DOCUSATE SODIUM 50 MG/SENNA 8.6 MG TAB PO SCH ×2 (09:00→21:16)
[2017-10-17] MEDS ORDERED: MORPHINE SULFATE 4 MG/ML INJ IV PUSH ONE (09:30)
[2017-10-17] MEDS ORDERED: ONDANSETRON ODT 4 MG TAB PO PRN (09:30)
--- NOTE | 2017-10-17 09:38 | PD.CONS ---
HPI History of Present Illness This is a 67 year old male PMH of Anxiety, Depression, HTN, DM, Glaucoma, Sleep Apnea and Tobacco Abuse who presented to the emergency room for fatigue, dizziness and weakness for the past 2 days. Labs revealed hgb 7.4. Pt denies hematemesis, vomiting, abd pain, hematochezia, melena, hematuria or change in bowels. Pt had recent admission on 09/18/2017 and was evaluated by our services , he had EGD/colonoscopy on 09/19/17 ---> severe diverticulosis, internal hemorrhoids and poor prep, and was recommended a repeat in one month, EGD showed Class B esophagitis, nodule in distal esophagus, and hiatal hernia, Bx showed reflux esophagitis. Pt denies blood thinner, he is on ASA. PFSH Past Medical History PMH: Anxiety, Depression, HTN, DM, Glaucoma, Sleep Apnea and Tobacco Abuse Past Surgical History PAST SURGICAL HISTORY: Scrotal Surgery Coded Allergies: Sulfa (Sulfonamide Antibiotics) (Unverified Allergy, Severe, 10/16/17) causes unknown Medications Current Medications Medications (Trade) Dose Ordered Sig/Daniel Route Start Time Stop Time Status Last Admin Sodium Chloride 250 ml @ 15 mls/hr ONCE ONCE IV 10/17/17 00:00 10/17/17 16:39 10/17/17 00:51 Pantoprazole Sodium 80 mg/ Sodium Chloride 100 ml @ 10 mls/hr Q10H IV 10/17/17 01:21 10/17/17 06:21 Sodium Chloride 1,000 ml @ 100 mls/hr Q10H IV 10/17/17 00:21 10/17/17 00:43 (NS Flush) 2 ml UNSCH PRN IV FLUSH 10/17/17 00:30 (NS Flush) 2 ml BID IV FLUSH 10/17/17 09:00 (Reglan Inj) 5 mg Q6H PRN IV PUSH 10/17/17 00:30 (Tylenol) 650 mg Q6H PRN PO 10/17/17 00:30 ([place] 5-325 Mg) 1 tab Q4H PRN PO 10/17/17 00:30 (Morphine Inj) 2 mg Q3H PRN IV PUSH 10/17/17 00:30 (Lory-Colace) 1 tab BID PO 10/17/17 09:00 (Milk Of Magnesia Liq) 30 ml Q12H PRN PO 10/17/17 00:30 (Senokot) 17.2 mg Q12H PRN PO 10/17/17 00:30 (Dulcolax Supp) 10 mg DAILY PRN RECTAL 10/17/17 00:30 (Lactulose Liq) 30 ml DAILY PRN PO 10/17/17 00:30 (D50w (Vial) Inj) 50 ml UNSCH PRN IV PUSH 10/17/17 01:45 (Glucagon Inj) 1 mg UNSCH PRN OTHER 10/17/17 01:45 (NovoLOG SUPPLEMENTAL SCALE) 1 ACHS SLIDING SCALE SQ 10/17/17 08:00 (Flomax) 0.4 mg HS PO 10/17/17 21:00 (Morphine Inj) 4 mg ONCE ONCE IV PUSH 10/17/17 09:30 10/17/17 09:31 (Zofran Odt) 4 mg Q6HR PRN PO 10/17/17 09:30 Family History PAST FAMILY HISTORY: Reviewed. No h/o DM or CAD Social History PAST SOCIAL HISTORY: Negative for alcohol or drugs. Smokes 2ppd. Review of Systems Constitutional: COMPLAINS OF: Fatigue, Dizziness, Change in appetite Endocrine: DENIES: Polyuria Eyes: DENIES: Double Vision Ears, nose, mouth, throat: DENIES: Hoarseness Respiratory: DENIES: Shortness of breath Cardiovascular: COMPLAINS OF: Syncope, DENIES: Lower Extremity Edema Gastrointestinal: DENIES: Abdominal pain, Black stools, Bloody stools, Constipation, Diarrhea, Nausea, Vomiting, Difficulty Swallowing, Anorexia, Odynophagia, Swelling of Abdomen, Heartburn, Hematemesis Genitourinary: DENIES: Hematuria Musculoskeletal: DENIES: Neck pain Integumentary: DENIES: Jaundice Hematologic/lymphatic: DENIES: Bruising Immunologic/allergic: DENIES: Eczema Neurologic: DENIES: Abnormal gait Psychiatric: DENIES: Anxiety GI Exam Vitals I&O Vital Signs Date Time Temp Pulse Resp B/P (MAP) Pulse Ox O2 Delivery O2 Flow Rate FiO2 10/17/17 07:17 61 18 103/63 (76) 98 Room Air 10/17/17 06:21 62 18 91/54 (66) 96 Room Air 10/17/17 05:14 98.2 66 18 111/67 94 10/17/17 05:14 111/67 (82) 10/17/17 04:47 64 18 87/51 (63) 94 Room Air 10/17/17 03:54 98.0 64 17 89/61 96 10/17/17 03:53 98.4 61 16 93/61 95 10/17/17 03:02 66 18 105/69 (81) 96 Room Air 10/17/17 01:09 98.0 87 18 99/57 96 10/17/17 00:54 98.1 89 18 105/57 98 10/16/17 22:16 97.3 69 18 107/57 (74) 100 I/O 10/16/17 10/16/17 10/16/17 10/17/17 10/17/17 10/17/17 07:00 15:00 23:00 07:00 15:00 23:00 Intake Total 2390 ml Balance 2390 ml Intake IV Total 1580 ml Packed Cells 800 ml Blood Product IV Normal Saline Flush 10 ml Imaging Last Impressions Head CT 10/16/172254 Signed Impressions: CONCLUSION: 1. No acute intracranial abnormality. Chest X-Ray 10/16/172254 Signed Impressions: CONCLUSION: Trace bibasilar atelectasis. Otherwise within normal limits. Laboratory Test 10/16/17 23:35 White Blood Count 8.1 TH/MM3 Red Blood Count 2.76 MIL/MM3 Hemoglobin 7.4 GM/DL Hematocrit 22.7 % Mean Corpuscular Volume 82.0 FL Mean Corpuscular Hemoglobin 27.0 PG Mean Corpuscular Hemoglobin Concent 32.9 % Red Cell Distribution Width 21.9 % Platelet Count 353 TH/MM3 Mean Platelet Volume 7.5 FL Neutrophils (%) (Auto) 67.1 % Lymphocytes (%) (Auto) 15.4 % Monocytes (%) (Auto) 15.8 % Eosinophils (%) (Auto) 0.9 % Basophils (%) (Auto) 0.8 % Neutrophils # (Auto) 5.4 TH/MM3 Lymphocytes # (Auto) 1.2 TH/MM3 Monocytes # (Auto) 1.3 TH/MM3 Eosinophils # (Auto) 0.1 TH/MM3 Basophils # (Auto) 0.1 TH/MM3 CBC Comment DIFF FINAL Differential Comment Prothrombin Time 12.4 SEC Prothromb Time International Ratio 1.2 RATIO Activated Partial Thromboplast Time 31.5 SEC Blood Urea Nitrogen 31 MG/DL Creatinine 1.74 MG/DL Random Glucose 110 MG/DL Total Protein 7.3 GM/DL Albumin 2.2 GM/DL Calcium Level 10.0 MG/DL Magnesium Level 2.1 MG/DL Alkaline Phosphatase 225 U/L Aspartate Amino Transf (AST/SGOT) 29 U/L Alanine Aminotransferase (ALT/SGPT) 28 U/L Total Bilirubin 0.7 MG/DL Sodium Level 141 MEQ/L Potassium Level 4.4 MEQ/L Chloride Level 104 MEQ/L Carbon Dioxide Level 25.2 MEQ/L Anion Gap 12 MEQ/L Estimat Glomerular Filtration Rate 39 ML/MIN Total Creatine Kinase 16 U/L Troponin I LESS THAN 0.02 NG/ML B-Type Natriuretic Peptide 132 PG/ML Physical Examination HEENT: Pupils round and reactive to light; normocephalic; atraumatic; no jaundice. NECK: Neck is supple, no JVD, no lymphadenopathy. CHEST: Chest is clear to auscultation and percussion. CARDIAC: Regular rate and rhythm with no murmur gallop or rubs. ABDOMEN: Soft, nondistended, nontender; no hepatosplenomegaly; bowel sounds are present in all four quadrants. EXTREMITIES: No clubbing, cyanosis, or edema. SKIN: Normal; no rash; no jaundice. MAXILLOFACIAL PATHOLOGY: No focal deficits; alert and oriented times three. Assessment and Plan Plan - Anemia- presented to the emergency room for fatigue, dizziness and weakness for the past 2 days. Labs revealed hgb 7.4. Pt denies hematemesis, vomiting, abd pain, hematochezia, melena, hematuria or change in bowels. Pt had recent admission on 09/18/2017 and was evaluated by our services, he had EGD/colonoscopy on 09/19/17 ---> severe diverticulosis, internal hemorrhoids and poor prep, and was recommended a repeat in one month , EGD showed Class B esophagitis, nodule in distal esophagus, and hiatal hernia, Bx showed reflux esophagitis. Pt denies blood thinner, he is on ASA. - PMH of Anxiety, Depression, HTN, DM, Glaucoma, Sleep Apnea and Tobacco Abuse per attending Plan: - Clear liquids - Colonoscopy in the am - Golytely today - NPO mn - Consents - Monitor hh - Transfuse as needed, 2 units ordered - Cont. PPI - Supportive care - Patient seen and examined by Dr. Carney and myself and this note is written on his behalf. Antonella Zhao October 17, 2017 09:38
[2017-10-17] MEDS ORDERED: SODIUM CHLOR 0.9% 1000 ML INJ 1,000 ML IV ONE (10:15)
[2017-10-17 10:46] LABS: AUTOMATED NEUTROPHIL # 4.4 TH/MM3 (1.8-7.7); BASOPHIL % 0.6 % (0.0-2.0); EOSINOPHIL % 0.2 % (0.0-4.0); HEMATOCRIT 23.4 % (39.0-51.0); HEMOGLOBIN 7.6 GM/DL (13.0-17.0); LYMPH % 16.2 % (9.0-44.0); MEAN CORPUSCULAR HEMOGLOBIN 27.4 PG (27.0-34.0); MEAN CORPUSCULAR HGB CONC 32.6 % (32.0-36.0); MEAN PLATELET VOLUME 7.4 FL (7.0-11.0); MONOCYTE # 0.8 TH/MM3 (0-0.9); PLATELET COUNT 255 TH/MM3 (150-450); RED BLOOD COUNT 2.79 MIL/MM3 (4.50-5.90); RED CELL DISTRIBUTION WIDTH 20.7 % (11.6-17.2); WHITE BLOOD COUNT 6.3 TH/MM3 (4.0-11.0)
[2017-10-17 11:10] LABS: BICARBONATE 24.9 MEQ/L (21.0-32.0); CALCIUM 8.5 MG/DL (8.5-10.1); CREATININE 1.39 MG/DL (0.60-1.30)
--- NOTE | 2017-10-17 15:29 | EKG ---
Date Performed: 10/17/2017 Time Performed: 00:03:24 PTAGE: 67 years EKG: MOST LIKELY Sinus rhythm WITH SINUS ARRHYTHMIA P-WAVES ARE SMALL AND DIFFICULT TO SEE BORDERLINE ECG Compared to PREVIOUS TRACING , no significant change. PREVIOUS TRACIN09/19/2017 05.54 DOCTOR: Joselito Saxena Interpretating Date/Time 10/17/2017 15:28:02
[2017-10-17] MEDS ORDERED: PEG (High)/E-LYTE SOLN 4000 ML BTL PO ONE (16:00)
[2017-10-17] MEDS ORDERED: TAMSULOSIN HCL 0.4 MG CAP PO SCH (21:00)
[2017-10-17] MEDS: BISACODYL EC 5 MG TABEC PO SCH (21:16)
[2017-10-18] VITALS (7 sets, daily range): BP systolic 82–125; BP diastolic 51–65; PULSE 58–72; RESP 16–20; TEMP 98–98.8; O2SAT 95–99
[2017-10-18 05:43] LABS: HEMATOCRIT 24.1 % (39.0-51.0); HEMOGLOBIN 8.1 GM/DL (13.0-17.0); MEAN CELL VOLUME 82.3 FL (80.0-100.0); MEAN CORPUSCULAR HEMOGLOBIN 27.6 PG (27.0-34.0); MEAN CORPUSCULAR HGB CONC 33.5 % (32.0-36.0); MEAN PLATELET VOLUME 7.4 FL (7.0-11.0); PLATELET COUNT 248 TH/MM3 (150-450); RED BLOOD COUNT 2.93 MIL/MM3 (4.50-5.90); RED CELL DISTRIBUTION WIDTH 20.5 % (11.6-17.2); WHITE BLOOD COUNT 5.9 TH/MM3 (4.0-11.0)
[2017-10-18] MEDS: SODIUM CHLOR 0.9% 1000 ML INJ 1,000 ML IV SCH (06:03)
[2017-10-18] MEDS: PANTOPRAZOLE INJ 80 MG in SODIUM CHLORIDE 0.9% INJ 100 ML IV SCH (06:04)
[2017-10-18 06:18] LABS: ALBUMIN 1.6 GM/DL (3.4-5.0); ALKALINE PHOSPHATASE 178 U/L (45-117); ALT (GPT) 18 U/L (12-78); AST (GOT) 24 U/L (15-37); BLOOD UREA NITROGEN 17 MG/DL (7-18); CALCIUM 8.1 MG/DL (8.5-10.1); CHLORIDE 106 MEQ/L (98-107); CREATININE 1.09 MG/DL (0.60-1.30); GLOMERULAR FILTRATION RATE 68 ML/MIN (>89); GLUCOSE,RANDOM 129 MG/DL (74-106); SODIUM (NA) 138 MEQ/L (136-145); TOTAL BILIRUBIN ADULT 0.7 MG/DL (0.2-1.0); TOTAL PROTEIN 5.7 GM/DL (6.4-8.2)
[2017-10-18 07:49] LABS: BANDS 1 % (0-6); LYMPHOCYTES 3 % (9-44); MONOCYTES 6 % (0-8); NEUTROPHIL # MANUAL DIFF 5.4 TH/MM3 (1.8-7.7); POLYS (SEG NEUTROPHILS) 90 % (16-70)
[2017-10-18] MEDS: INSULIN ASPART SUPPLEMENTAL SCALE SQ SCH ×3 (08:00→17:00)
[2017-10-18] MEDS: DOCUSATE SODIUM 50 MG/SENNA 8.6 MG TAB PO SCH (08:19)
[2017-10-18] MEDS: BISACODYL EC 5 MG TABEC PO SCH (08:19)
[2017-10-18] MEDS: SODIUM CHLORIDE 0.9% FLUSH 10 ML FLUSH IV FLUSH SCH (08:19)
--- NOTE | 2017-10-18 08:45 | HHI.PR ---
Subjective Remarks in no acute distress. denies abdominal pain, sob or chest pain. awaiting colonoscopy. Objective Vitals Vital Signs Date Time Temp Pulse Resp B/P (MAP) Pulse Ox O2 Delivery O2 Flow Rate FiO2 10/18/17 04:48 63 10/18/17 04:00 98.1 67 17 82/60 (67) 98 10/18/17 00:00 98.8 72 18 96/58 (71) 95 10/17/17 21:33 90 10/17/17 20:00 98.9 65 19 88/54 (65) 96 10/17/17 16:00 98.1 67 17 111/70 (84) 97 10/17/17 14:40 10/17/17 12:00 68 18 106/58 (74) 96 Room Air 10/17/17 11:03 68 18 80/52 (61) 96 Room Air 10/17/17 10:41 64 18 81/50 (60) 96 Room Air 10/17/17 10:03 60 18 73/47 (56) 95 Room Air 10/17/17 09:30 64 18 87/52 (64) 98 Room Air I/O 10/17/17 10/17/17 10/17/17 10/18/17 10/18/17 10/18/17 07:00 15:00 23:00 07:00 15:00 23:00 Intake Total 2390 ml 1000 ml Output Total 420 ml Balance 2390 ml 580 ml Intake IV Total 1580 ml 1000 ml Packed Cells 800 ml Blood Product IV Normal Saline Flush 10 ml Output Urine Total 420 ml # Voids 2 Result Diagram: 10/18/17 0457 10/18/17456 Imaging Last Impressions Head CT 10/16/172254 Signed Impressions: CONCLUSION: 1. No acute intracranial abnormality. Chest X-Ray 10/16/172254 Signed Impressions: CONCLUSION: Trace bibasilar atelectasis. Otherwise within normal limits. Objective Remarks GENERAL: This is a well-nourished, well-developed patient, in no apparent distress. CARDIOVASCULAR: Regular rate and regular rhythm without murmurs, gallops, or rubs. RESPIRATORY: Clear to auscultation. Breath sounds equal bilaterally. No wheezes , rales, or rhonchi. GASTROINTESTINAL: Abdomen soft, non-tender, nondistended. Normal, active bowel sounds MUSCULOSKELETAL: Extremities without clubbing, cyanosis, or edema. NEURO: Alert & Oriented x4 to person, place, time, situation. Moves all ext x4 Medications and IVs Inpatient Medications Acetaminophen (Tylenol) 650 mg Q6H PRN PO FEVER/PAIN SCALE 1 TO 2; Start at 00:30 Acetaminophen/ Hydrocodone Bitart ([place] 5-325 Mg) 1 tab Q4H PRN PO PAIN SCALE 3 TO 5; Start 10/17/17 at 00:30 Bisacodyl (Dulcolax Ec) 20 mg BID PO Last administered on 10/17/17at 21:16; Start 10/17/17 at 21:00; Stop 10/18/17 at 20:59 Bisacodyl (Dulcolax Supp) 10 mg DAILY PRN RECTAL SEVERE CONSITIPATION/ IF NPO ; Start 10/17/17 at 00:30 Dextrose (D50w (Vial) Inj) 50 ml UNSCH PRN IV PUSH HYPOGLYCEMIA-SEE COMMENTS; Start 10/17/17 at 01:45 Glucagon (Glucagon Inj) 1 mg UNSCH PRN OTHER HYPOGLYCEMIA-SEE COMMENTS; Start 10/17/17 at 01:45 Insulin Aspart (NovoLOG SUPPLEMENTAL SCALE) 1 ACHS SLIDING SCALE SQ Last administered on 10/17/17at 21:16; Start 10/17/17 at 08:00 Lactulose (Lactulose Liq) 30 ml DAILY PRN PO SEVERE CONSITIPATION / IF PO; Start 10/17/17 at 00:30 Magnesium Hydroxide (Milk Of Magnesia Liq) 30 ml Q12H PRN PO Mild constipation ; Start 10/17/17 at 00:30 Metoclopramide HCl (Reglan Inj) 5 mg Q6H PRN IV PUSH NAUSEA OR VOMITING; Start 10/17/17 at 00:30 Morphine Sulfate (Morphine Inj) 4 mg ONCE ONCE IV PUSH ; Start 10/17/17 at 09: 30; Stop 10/17/17 at 09:31; Status DC Ondansetron HCl (Zofran Odt) 4 mg Q6HR PRN PO Nausea; Start 10/17/17 at 09:30 Pantoprazole Sodium (Protonix Inj) 40 mg ONCE ONCE IVP Last administered on at 00:16; Start 10/17/17 at 00:15; Stop 10/17/17 at 00:16; Status DC Pantoprazole Sodium 80 mg/ Sodium Chloride 100 ml @ 10 mls/hr Q10H IV Last administered on 10/18/17at 06:04; Start 10/17/17 at 01:21 Polyethylene Glycol/ Electrolytes (Colyte Liq) 4,000 ml ONCE ONCE PO Last administered on 10/17/17at 15:40; Start 10/17/17 at 16:00; Stop 10/17/17 at 16:01 ; Status DC Senna/Docusate Sodium (Lory-Colace) 1 tab BID PO Last administered on at 21:16; Start 10/17/17 at 09:00 Sennosides (Senokot) 17.2 mg Q12H PRN PO Moderate constipation; Start 10/17/17 at 00:30 Sodium Chloride 1,000 ml @ 999 mls/hr BOLUS ONCE IV Last administered on 10/17at 10:11; Start 10/17/17 at 10:15; Stop 10/17/17 at 11:15; Status DC Sodium Chloride (NS Flush) 2 ml BID IV FLUSH Last administered on 10/17/17at 21: 14; Start 10/17/17 at 09:00 Tamsulosin HCl (Flomax) 0.4 mg HS PO Last administered on 10/17/17at 21:15; Start 10/17/17 at 21:00 A/P Problem List: (1) GI bleed ICD Code: K92.2 - Gastrointestinal hemorrhage, unspecified Status: Acute (2) Anemia ICD Code: D64.9 - Anemia, unspecified Status: Acute (3) LUIS (acute kidney injury) ICD Code: N17.9 - Acute kidney failure, unspecified (4) DM (diabetes mellitus) ICD Code: E11.9 - Type 2 diabetes mellitus without complications (5) Tobacco abuse ICD Code: Z72.0 - Tobacco abuse Status: Acute Assessment and Plan A/P 1. GI Bleed: +Hemoccult on exam, s/p Protonix IV in ER, continue Protonix gtt. GI consult appreciated; plan for colonoscopy. 2. Anemia: secondary to above. s/p PRBC transfusion- continue to monitor H/H. 3. LUIS: resolved. 4. DM: Sliding scale w/ Accu-Cheks, hold Metformin for now as NPO. 5. Tobacco Abuse: Pt counselled. NicoDerm prn if needed. 6. DVT Prophylaxis: Pharmacologic contraindication in light of acute GI Bleed Discharge Planning when GI w/u completed and cleared by GI. Desi Paredes MD October 18, 2017 08:45
[2017-10-18] MEDS ORDERED: PROPOFOL 200 MG/20 ML AMP IV ONE (21:09)
[2017-10-18] MEDS ORDERED: SODIUM CHLORID 0.9% 500 ML INJ 500 ML IV ONE (21:09)
== END 2017-10-18 21:10 | disposition home or self-care (01) | DRG 378 ==
LOC: NEPD 21:55 → NEDA 10-17 00:20 → NEDH 10-17 07:33 → N04B 10-17 15:08
PROVIDERS: ADMIT Internal Medicine; ATTEND Internal Medicine
PROC: 30233N1 Transfusion of Nonautologous Red Blood Cells into Peripheral Vein, Percutaneous Approach (ICD-10-PCS; principal; 2017-10-17)
PROC: 0DBP8ZX Excision of Rectum, Via Natural or Artificial Opening Endoscopic, Diagnostic (ICD-10-PCS; 2017-10-18)
DX: K92.2 Gastrointestinal hemorrhage, unspecified (principal); N17.9 Acute kidney failure, unspecified; D64.9 Anemia, unspecified; E11.9 Type 2 diabetes mellitus without complications; F41.9 Anxiety disorder, unspecified; F32.9 Major depressive disorder, single episode, unspecified; K57.30 Diverticulosis of large intestine without perforation or abscess without bleeding; K62.1 Rectal polyp; K64.8 Other hemorrhoids; G47.30 Sleep apnea, unspecified; Z72.0 Tobacco use; Z88.2 Allergy status to sulfonamides
CPT/HCPCS: 36430; 70450; 71045; 80048; 80053; 82550; 82948; 83735; 83880; 84484; 85007; 85025; 85027; 85610; 85730; 86850; 86900; 86901; 86920; 88305; 93005; 96361; 96374; C9113; J1815; J7030; J7040; J7050; P9016

== ENCOUNTER 2017-10-29 13:58 | Inpatient (IN) | payer MEDICAID ==
[~2017-10-29] VITALS: Ht 182.9 cm; Wt 109.0 kg
[2017-10-29] VITALS (9 sets, daily range): BP systolic 90–118; BP diastolic 55–69; PULSE 70–98; RESP 14–20; TEMP 97.7–98.9; O2SAT 96–100
[~2017-10-29 13:58] MED LIST changes: -LISI-515 PO
[2017-10-29] MEDS ORDERED: ASPI-516 CHEW (14:55)
[2017-10-29] MEDS ORDERED: SODIUM CHLORIDE 0.9% FLUSH 10 ML FLUSH IV FLUSH PRN (15:00)
[2017-10-29 15:28] LABS: MEAN CELL VOLUME 83.8 FL (80.0-100.0); MEAN CORPUSCULAR HEMOGLOBIN 27.7 PG (27.0-34.0); MEAN PLATELET VOLUME 7.3 FL (7.0-11.0); PLATELET COUNT 241 TH/MM3 (150-450); RED BLOOD COUNT 2.32 MIL/MM3 (4.50-5.90); RED CELL DISTRIBUTION WIDTH 21.9 % (11.6-17.2); WHITE BLOOD COUNT 6.7 TH/MM3 (4.0-11.0)
[2017-10-29 15:31] LABS: HEMATOCRIT 19.4 % (39.0-51.0); HEMOGLOBIN 6.4 GM/DL (13.0-17.0)
[2017-10-29 15:39] LABS: ALBUMIN 1.6 GM/DL (3.4-5.0); ALT (GPT) 26 U/L (12-78); AST (GOT) 43 U/L (15-37); BICARBONATE 22.6 MEQ/L (21.0-32.0); BLOOD UREA NITROGEN 21 MG/DL (7-18); CALCIUM 8.8 MG/DL (8.5-10.1); CHLORIDE 102 MEQ/L (98-107); CREATININE 1.02 MG/DL (0.60-1.30); GLOMERULAR FILTRATION RATE 73 ML/MIN (>89); GLUCOSE,RANDOM 143 MG/DL (74-106); SODIUM (NA) 135 MEQ/L (136-145)
[2017-10-29 15:49] LABS: ALKALINE PHOSPHATASE 287 U/L (45-117); TOTAL BILIRUBIN ADULT 0.8 MG/DL (0.2-1.0); TOTAL PROTEIN 5.7 GM/DL (6.4-8.2)
[2017-10-29 16:03] LABS: BANDS 2 % (0-6); LYMPHOCYTES 2 % (9-44); MONOCYTES 6 % (0-8); NEUTROPHIL # MANUAL DIFF 6.2 TH/MM3 (1.8-7.7); POLYS (SEG NEUTROPHILS) 90 % (16-70)
[2017-10-29 16:04] LABS: OVALOCYTES 2+ (NORMAL)
[2017-10-29] MEDS ORDERED: SODIUM CHLOR 0.9% 250 ML INJ 250 ML IV ONE (16:30)
[2017-10-29] MEDS ORDERED: PROCHLORPERAZINE INJ 10 MG/2 ML VIAL IV PUSH ONE (17:15)
[2017-10-29] MEDS ORDERED: MORPHINE SULFATE 4 MG/ML INJ IV PUSH ONE (17:15)
--- NOTE | 2017-10-29 18:07 | PD ---
HPI Chief Complaint: Numbness/Tingling Time Seen by Provider: 15:26 Travel History International Travel<30 days: No Contact w/Intl Traveler<30days: No Traveled to known affect area: No History of Present Illness HPI 67-year-old male with history of hypertension, hyperlipidemia, diabetes mellitus , previous GI bleed, presents today with complaints of generalized weakness with difficulty ambulating secondary to the weakness. Patient denies any fevers , chills. Denies any melanotic stools or bright red blood per rectum. Patient states that he has had a fall secondary to his extreme weakness. He reports an abrasion to his right knee. There are no other injuries. PFSH Past Medical History Asthma: No Autoimmune Disease: No Blood Disorders: No Anxiety: Yes Depression: Yes Cancer: No Cardiovascular Problems: Yes (HTN) High Cholesterol: Yes COPD: No Diabetes: Yes Patient Takes Glucophage: No Diminished Hearing: No Endocrine: No Gastrointestinal Disorders: No Glaucoma: Yes Genitourinary: No Hepatitis: No Hiatal Hernia: No Hypertension: Yes Immune Disorder: No Medical other: Yes ('back and neck problems) Musculoskeletal: No Neurologic: No Psychiatric: Yes Reproductive: No Respiratory: Yes ( sleep apnea, asthma) Immunizations Current: Yes Sleep Apnea: Yes Thyroid Disease: No Triglycerides - High: Yes Tetanus Vaccination: < 5 Years Past Surgical History Genitourinary Surgery: Yes (scrotal surgery) Other Surgery: Yes Social History Alcohol Use: No Tobacco Use: Yes (2ppd) Substance Use: No Allergies-Medications (Allergen,Severity, Reaction): Coded Allergies: No Known Allergies (Verified Allergy, Unknown, 10/29/17) Reported Meds & Prescriptions Reported Meds & Active Scripts Active No Active Prescriptions or Reported Medications Review of Systems Except as stated in HPI: all other systems reviewed are Neg General / Constitutional: No: Fever, Chills HENT: Positive: Lightheadedness, No: Headaches, Neck Stiffness, Neck Pain Cardiovascular: No: Chest Pain or Discomfort, Palpitations Respiratory: Positive: Shortness of Breath, No: Cough, Hemoptysis (On exertion) Gastrointestinal: No: Nausea, Vomiting, Abdominal Pain Genitourinary: No: Dysuria, Hematuria Musculoskeletal: Positive: Weakness (Generalized), Other (Abrasion to the right knee from a fall.), No: Pain Neurologic: Positive: Weakness, No: Headache (General), Change in Mentation, Paresthesia, Sensory Disturbance Psychiatric: No: Substance Abuse Physical Exam Narrative GENERAL: Well-developed well-nourished who appears to be pale and in no acute respiratory distress. SKIN: Focused skin assessment warm/dry. HEAD: Atraumatic. Normocephalic. EYES: Pupils equal and round. No scleral icterus. Pale conjunctiva. ENT: No nasal bleeding or discharge. Mucous membranes pink and moist. NECK: Trachea midline. Supple. CARDIOVASCULAR: Regular rate and rhythm. No murmur appreciated. RESPIRATORY: No accessory muscle use. Clear to auscultation. Breath sounds equal bilaterally. GASTROINTESTINAL: Abdomen soft, non-tender, nondistended. Hepatic and splenic margins not palpable. RECTAL EXAM: No masses or tenderness, stool is brown. Hemoccult negative on testing. MUSCULOSKELETAL: No obvious deformities. No clubbing. No cyanosis. No edema. Abrasions to the right knee. Full range of motion. NEUROLOGICAL: Awake and alert. No obvious cranial nerve deficits. Motor grossly within normal limits. Normal speech. Data Data Last Documented VS Vital Signs Date Time Temp Pulse Resp B/P (MAP) Pulse Ox O2 Delivery O2 Flow Rate FiO2 10/29/17 17:34 16 10/29/17 17:02 98.1 70 91/58 (69) 98 Room Air Orders Orders Complete Blood Count With Diff (10/29/17 14:57) Comprehensive Metabolic Panel (10/29/17 14:57) Creatine Kinase (Cpk) (10/29/17 14:57) Urinalysis - C+S If Indicated (10/29/17 14:57) Blood Glucose (10/29/17 14:57) Ecg Monitoring (10/29/17 14:57) Iv Access Insert/Monitor (10/29/17 14:57) Oximetry (10/29/17 14:57) Sodium Chloride 0.9% Flush (Ns Flush) (10/29/17 15:00) Thyroid Stimulating Hormone (10/29/17 14:57) Type And Screen (10/29/17 15:30) Red Blood Cells (Rbc) (10/29/17 16:18) Blood Product Administration (10/29/17 16:18) Sodium Chlor 0.9% 250 Ml Inj (Ns 250 Ml (10/29/17 16:30) Morphine Inj (Morphine Inj) (10/29/17 17:15) Prochlorperazine Inj (Compazine Inj) (10/29/17 17:15) Admit Order (Ed Use Only) (10/29/17 17:46) Labs Laboratory Tests Test 10/29/17 15:10 White Blood Count 6.7 TH/MM3 Red Blood Count 2.32 MIL/MM3 Hemoglobin 6.4 GM/DL Hematocrit 19.4 % Mean Corpuscular Volume 83.8 FL Mean Corpuscular Hemoglobin 27.7 PG Mean Corpuscular Hemoglobin Concent 33.0 % Red Cell Distribution Width 21.9 % Platelet Count 241 TH/MM3 Mean Platelet Volume 7.3 FL CBC Comment AUTO DIFF Differential Total Cells Counted 100 Neutrophils % (Manual) 90 % Band Neutrophils % 2 % Lymphocytes % 2 % Monocytes % 6 % Neutrophils # (Manual) 6.2 TH/MM3 Differential Comment FINAL DIFF MANUAL Platelet Estimate NORMAL Platelet Morphology Comment NORMAL Ovalocytes 2+ Blood Urea Nitrogen 21 MG/DL Creatinine 1.02 MG/DL Random Glucose 143 MG/DL Total Protein 5.7 GM/DL Albumin 1.6 GM/DL Calcium Level 8.8 MG/DL Alkaline Phosphatase 287 U/L Aspartate Amino Transf (AST/SGOT) 43 U/L Alanine Aminotransferase (ALT/SGPT) 26 U/L Total Bilirubin 0.8 MG/DL Sodium Level 135 MEQ/L Potassium Level 4.2 MEQ/L Chloride Level 102 MEQ/L Carbon Dioxide Level 22.6 MEQ/L Anion Gap 10 MEQ/L Estimat Glomerular Filtration Rate 73 ML/MIN Total Creatine Kinase 199 U/L Thyroid Stimulating Hormone 3rd Gen 1.260 uIU/ML MDM Medical Decision Making Medical Screen Exam Complete: Yes Emergency Medical Condition: Yes Differential Diagnosis Occult GI bleed versus metabolic derangement versus anemia Narrative Course 67-year-old male with history of previous GI bleed, presents here with weakness and difficulty ambulating secondary to weakness. Patient has a hemoglobin of 6.4. Patient has been ordered blood. He will be transfused 2 units packed red blood cells. Case was discussed with Dr. Garcia, who agrees with the above plan. At this point his rectal exam is heme-negative. Concern is he may have other etiology for the anemia. Diagnosis Primary Impression: Symptomatic anemia Additional Impressions: Diabetes mellitus Hypotension Hyperlipidemia Scripts No Active Prescriptions or Reported Meds Connor Wang MD Oct 29, 2017 18:06
--- NOTE | 2017-10-29 19:35 | HHI.HP ---
HPI Service [facility] Hospitalists Primary Care Physician No Primary Care Physician Admission Diagnosis symptomatic anemia, hypotension. Diagnoses: Chief Complaint: "I fell, and I am feeling dizzy" Travel History International Travel<30 Days: No Contact w/Intl Traveler <30 Da: No Traveled to Known Affected Are: No History of Present Illness This is a 67-year-old male with past medical history of hypertension, hyperlipidemia, diabetes mellitus, previous GI bleed who presents today to [facility] complaining of generalized weakness and difficulty ambulating. 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 The patient states that he has been feeling very tired, dizzy for the past few days. Denies any dizziness. The patient denies any melanotic stools or bright red blood per rectum. The patient was recently admitted on October 17 for GI bleeding. GI was consulted then and the patient underwent a colonoscopy which showed diverticulosis, rectal polyps, hemorrhoids. The patient otherwise denies any chest pain, shortness of breath, nausea, vomiting, abdominal pain. Review of Systems As per HPI, other systems reviewed by me and negative. Past Family Social History Past Medical History Anxiety, Depression, HTN, DM, Glaucoma, Sleep Apnea and Tobacco Abuse Past Surgical History Scrotal Surgery Reported Medications None Allergies: Coded Allergies: No Known Allergies (Verified Allergy, Unknown, 10/29/17) Active Ordered Medications Current Medications Medications (Trade) Dose Ordered Sig/Daniel Route Start Time Stop Time Status Last Admin (NS Flush) 2 ml UNSCH PRN IV FLUSH 10/29/17 15:00 10/29/17 15:41 Sodium Chloride 250 ml @ 15 mls/hr ONCE ONCE IV 10/29/17 16:30 10/30/17 09:09 10/29/17 18:14 Family History Positive for diabetes and hypertension. Social History Negative for alcohol or drugs. Smokes 2ppd. Physical Exam Vital Signs Vital Signs Date Time Temp Pulse Resp B/P (MAP) Pulse Ox O2 Delivery O2 Flow Rate FiO2 10/29/17 19:10 98.2 77 14 110/63 (79) 98 Room Air 10/29/17 18:31 97.7 74 17 92/56 97 10/29/17 18:16 97.8 73 18 90/55 97 10/29/17 17:34 16 10/29/17 17:02 98.1 70 16 91/58 (69) 98 Room Air 10/29/17 15:43 89 16 98 Room Air 10/29/17 15:20 99 Room Air 10/29/17 14:47 98.9 98 20 95/62 (73) 99 Physical Exam GENERAL: This is a well-nourished, well-developed patient, in no apparent distress. SKIN: No rashes, ecchymoses or lesions. Cool and dry. Pale skin HEAD: Atraumatic. Normocephalic. No temporal or scalp tenderness. EYES: Pupils equal round and reactive. Extraocular motions intact. No scleral icterus. No injection or drainage. ENT: Nose without bleeding, purulent drainage or septal hematoma. Throat without erythema, tonsillar hypertrophy or exudate. Uvula midline. Airway patent. NECK: Trachea midline. No JVD or lymphadenopathy. Supple, nontender, no meningeal signs. CARDIOVASCULAR: Regular rate and rhythm without murmurs, gallops, or rubs. RESPIRATORY: Clear to auscultation. Breath sounds equal bilaterally. No wheezes , rales, or rhonchi. GASTROINTESTINAL: Abdomen soft, non-tender, nondistended. No hepato-splenomegaly , or palpable masses. No guarding. MUSCULOSKELETAL: Extremities without clubbing, cyanosis, or edema. No joint tenderness, effusion, or edema noted. No calf tenderness. Negative Homans sign bilaterally. NEUROLOGICAL: Awake and alert. Cranial nerves II through XII intact. Motor and sensory grossly within normal limits. Five out of 5 muscle strength in all muscle groups. Normal speech. Laboratory Laboratory Tests Test 10/29/17 15:10 White Blood Count 6.7 Red Blood Count 2.32 Hemoglobin 6.4 Hematocrit 19.4 Mean Corpuscular Volume 83.8 Mean Corpuscular Hemoglobin 27.7 Mean Corpuscular Hemoglobin Concent 33.0 Red Cell Distribution Width 21.9 Platelet Count 241 Mean Platelet Volume 7.3 CBC Comment AUTO DIFF Differential Total Cells Counted 100 Neutrophils % (Manual) 90 Band Neutrophils % 2 Lymphocytes % 2 Monocytes % 6 Neutrophils # (Manual) 6.2 Differential Comment FINAL DIFF MANUAL Platelet Estimate NORMAL Platelet Morphology Comment NORMAL Ovalocytes 2+ Blood Urea Nitrogen 21 Creatinine 1.02 Random Glucose 143 Total Protein 5.7 Albumin 1.6 Calcium Level 8.8 Alkaline Phosphatase 287 Aspartate Amino Transf (AST/SGOT) 43 Alanine Aminotransferase (ALT/SGPT) 26 Total Bilirubin 0.8 Sodium Level 135 Potassium Level 4.2 Chloride Level 102 Carbon Dioxide Level 22.6 Anion Gap 10 Estimat Glomerular Filtration Rate 73 Total Creatine Kinase 199 Thyroid Stimulating Hormone 3rd Gen 1.260 Result Diagram: 10/29/17 1510 10/29/17 1510 Caprini VTE Risk Assessment Caprini VTE Risk Assessment: Mod/High Risk (score >= 2) VTE Pharm Contraindication: Severe anemia. Caprini Risk Assessment Model Point Value = 1 Point Value = 2 Point Value = 3 Point Value = 5 Age 41-60 Minor surgery BMI > 25 kg/m2 Swollen legs Varicose veins or History of unexplained or recurrent spontaneous Oral contraceptives or hormone replacement Sepsis (< 1 month) Serious lung disease, including pneumonia (< 1 month) Abnormal pulmonary function Acute myocardial infarction Congestive heart failure (< 1 month) History of inflammatory bowel disease Medical patient at bed rest Age 61-74 Arthroscopic surgery Major open surgery (> 45 min) Laparoscopic surgery (> 45 min) Malignancy Confined to bed (> 72 hours) Immobilizing plaster cast Central venous access Age >= 75 History of VTE Family history of VTE Factor V Leiden Prothrombin [id number] Lupus anticoagulant Anticardiolipin antibodies Elevated serum homocysteine Heparin-induced thrombocytopenia Other congenital or acquired thrombophilia Stroke (< 1 month) Elective arthroplasty Hip, pelvis, or leg fracture Acute spinal cord injury (< 1 month) Prophylaxis Regimen Total Risk Factor Score Risk Level Prophylaxis Regimen 0-1 Low Early ambulation 2 Moderate Order ONE of the following: *Sequential Compression Device (SCD) *Heparin 5000 units SQ BID 3-4 Higher Order ONE of the following medications: *Heparin 5000 units SQ TID *Enoxaparin/Lovenox 40 mg SQ daily (WT < 150 kg, CrCl > 30 mL/min) *Enoxaparin/Lovenox 30 mg SQ daily (WT < 150 kg, CrCl > 10-29 mL/min) *Enoxaparin/Lovenox 30 mg SQ BID (WT < 150 kg, CrCl > 30 mL/min) AND/OR *Sequential Compression Device (SCD) 5 or more Highest Order ONE of the following medications: *Heparin 5000 units SQ TID (Preferred with Epidurals) *Enoxaparin/Lovenox 40 mg SQ daily (WT < 150 kg, CrCl > 30 mL/min) *Enoxaparin/Lovenox 30 mg SQ daily (WT < 150 kg, CrCl > 10-29 mL/min) *Enoxaparin/Lovenox 30 mg SQ BID (WT < 150 kg, CrCl > 30 mL/min) AND *Sequential Compression Device (SCD) Assessment and Plan Problem List: (1) Symptomatic anemia ICD Code: D64.9 - Anemia, unspecified Plan: Hemoglobin on presentation 6.4. Acute on chronic anemia. There is not much evidence of bleeding. Consult hematology. Consider GI consult if Hemoccult positive. As per ED report the patient was Hemoccult negative. Transfuse 2 units of packed red blood cells. (2) Hypotension ICD Code: I95.9 - Hypotension, unspecified Status: Acute Plan: Patient with systolic blood pressure in the 90s. Status post 8 250 mL's IV bolus with normal saline. Patient to get 2 units of PRBCs. Continue to monitor vital signs. (3) DM (diabetes mellitus) ICD Code: E11.9 - Type 2 diabetes mellitus without complications Plan: Patient blood sugar seems to be stable. The patient states that he is not on any medications and that he used to have diabetes but he does not anymore. We will place on SSI with insulin NovoLog. (4) Hyperlipidemia ICD Code: E78.5 - Hyperlipidemia Status: Acute Plan: Not on a statin. Check fasting lipid profile. We will start the low-dose statin since patient is a diabetic. (5) Hypertension ICD Code: I10 - Hypertension Status: Acute Plan: Patient hypotensive at this time and not on any antihypertensives at home. (6) Tobacco abuse ICD Code: Z72.0 - Tobacco abuse Status: Acute Plan: Advised smoking cessation. I will Rx nicotine patch. (7) Weakness ICD Code: R53.1 - Weakness Plan: Likely secondary to symptomatic anemia. Consult PT. Assessment and Plan DVT prophylaxis: SCDs, no chemoprophylaxis given severe symptomatic anemia and history of GI bleeding. Code Status Full code Discussed Condition With ED physician, RN, patient. Physician Certification 2 Midnight Certification Type: Admission for Inpatient Services Order for Inpatient Services The services are ordered in accordance with Medicare regulations or non- Medicare payer requirements, as applicable. In the case of services not specified as inpatient-only, they are appropriately provided as inpatient services in accordance with the 2-midnight benchmark. Estimated LOS (days): 2 days is the estimated time the patient will need to remain in the hospital, assuming treatment plan goals are met and no additional complications. Post-Hospital Plan: Not yet determined Problem Qualifiers (1) Hypotension: Qualified Codes: I95.9 - Hypotension, unspecified (2) DM (diabetes mellitus): Qualified Codes: E11.9 - Type 2 diabetes mellitus without complications (3) Hyperlipidemia: Qualified Codes: E78.5 - Hyperlipidemia, unspecified Zbigniew Reinoso MD Oct 29, 2017 19:35
[2017-10-29] MEDS ORDERED: GLUCAGON 1 MG/ML VIAL OTHER PRN (19:45)
[2017-10-29] MEDS ORDERED: DEXTROSE 50% IN WATER 50 ML VIAL(D50) IV PUSH PRN (19:45)
[2017-10-29] MEDS: INSULIN ASPART SUPPLEMENTAL SCALE SQ SCH (21:00)
[2017-10-30] VITALS: BP 113/62; PULSE 80; RESP 17; TEMP 98; O2SAT 96
[2017-10-30 08:00] VITALS: BP 100/56; PULSE 75; RESP 18; TEMP 98.6; O2SAT 95
[2017-10-30] MEDS: INSULIN ASPART SUPPLEMENTAL SCALE SQ SCH ×4 (08:00→20:57)
--- NOTE | 2017-10-30 08:10 | PD.CONS ---
History of Present Illness Service Hematology/oncology. Consult Requested By The hospitalist service. Reason for Consult Normocytic anemia. Primary Care Physician No Primary Care Physician Diagnoses: History of Present Illness Chief complaint: "I fell and was not able to get up because I was too weak ". History of Presenting Illness: Mr. 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 The patient reports as a result he has had pain and stiffness of his right hip and right shoulder as well as his thighs. This patient was hospitalized at this facility in late September 2017 for unexplained anemia which was symptomatic. His hemoglobin at that time was less than 10 g/ dL and the patient underwent a GI workup including a colonoscopy, he was found to have no definite evidence of a culprit lesion. He was discharged home and tells me he really felt no major improvements in his condition. Additionally over the past several weeks the patient has noted an overall progressive weakness, lower extremity edema, loss of appetite, unexplained 15-20 pound weight loss over the past 1 month and increased difficulty breathing with minimal exertion. He tells me his energy levels are poor in general. He does however deny noting overt blood losses specifically hematochezia, hematuria hemoptysis or hematemesis. He thinks he may have noticed a dark stool once prior to his previous hospitalization but is not certain if the color was black. Upon presentation to this facility yesterday the patient was noted on blood work to have a hemoglobin of 6.4 g/dL, hematocrit of 19.4%, MCV 83.8, platelet count and WBC counts were noted to be within normal limits. A comment was made on the manual differential regarding presence of ovalocytes. Review of Systems Constitutional: COMPLAINS OF: Fatigue, Weight loss, Dizziness, Change in appetite (Decreased appetite), DENIES: Diaphoretic episodes, Fever, Weight gain , Chills, Night Sweats Endocrine: DENIES: Heat/cold intolerance, Polydipsia, Polyuria, Polyphagia Eyes: DENIES: Blurred vision, Diplopia, Eye inflammation, Eye pain, Vision loss , Photosensitivity, Double Vision Ears, nose, mouth, throat: DENIES: Tinnitus, Hearing loss, Vertigo, Nasal discharge, Oral lesions, Throat pain, Hoarseness, Ear Pain, Running Nose, Epistaxis, Sinus Pain, Toothache, Odynophagia Respiratory: COMPLAINS OF: Cough, Shortness of breath, DENIES: Apneas, Snoring , Wheezing, Hemoptysis, Sputum production Cardiovascular: COMPLAINS OF: Dyspnea on Exertion, Lower Extremity Edema, DENIES: Chest pain, Palpitations, Syncope, PND, Orthopnea, Claudication Gastrointestinal: DENIES: Abdominal pain, Black stools, Bloody stools, Constipation, Diarrhea, Nausea, Vomiting, Difficulty Swallowing, Anorexia Genitourinary: DENIES: Sexual dysfunction, Urinary frequency, Urinary incontinence, Urgency, Hematuria, Dysuria, Nocturia, Penile Discharge, Testicular Pain, Testicular Swelling Musculoskeletal: COMPLAINS OF: Muscle aches, Stiffness, Back pain, DENIES: Joint pain, Joint Swelling, Neck pain Integumentary: DENIES: Abnormal pigmentation, Nail changes, Pruritus, Rash Hematologic/lymphatic: DENIES: Bruising, Lymphadenopathy Immunologic/allergic: DENIES: Eczema, Urticaria Neurologic: COMPLAINS OF: Localized weakness, Poor Balance, DENIES: Abnormal gait, Headache, Paresthesias, Seizures, Speech Problems, Tremor Psychiatric: COMPLAINS OF: Anxiety, DENIES: Confusion, Mood changes, Depression , Hallucinations, Agitation, Suicidal Ideation, Homicidal Ideation, Delusions Except as stated in HPI: all other systems reviewed are Neg Past Family Social History Allergies: Coded Allergies: No Known Allergies (Verified Allergy, Unknown, 10/29/17) Past Medical History Anemia Anxiety Depression HTN DM Glaucoma Sleep Apnea tobacco Abuse Past Surgical History Colonoscopy and EGD. Active Ordered Medications Morphine 2 mg IV 1 Compazine 10 mg IV 1 Insulin NovoLog sliding scale before meals and at bedtime. Family History Parents both , in their 70s. No known oncologic diagnoses in the family. Social History Patient reports he is single, he lives at home alone, he has no children of his own. He reports smoking daily, he denies alcohol abuse. In the past he smoked up to a pack and half a day, more recently he smoking 3-4 cigarettes a day. Physical Exam Vital Signs Vital Signs Date Time Temp Pulse Resp B/P (MAP) Pulse Ox O2 Delivery O2 Flow Rate FiO2 10/30/17 00:00 98.0 80 17 113/62 (79) 96 10/29/17 23:17 98.5 76 18 118/69 (85) 96 10/29/17 22:49 98.5 78 18 118/69 96 10/29/17 21:00 98.0 71 18 109/66 100 10/29/17 19:10 98.2 77 14 110/63 (79) 98 Room Air 10/29/17 18:31 97.7 74 17 92/56 97 10/29/17 18:16 97.8 73 18 90/55 97 10/29/17 17:34 16 10/29/17 17:02 98.1 70 16 91/58 (69) 98 Room Air 10/29/17 15:43 89 16 98 Room Air 10/29/17 15:20 99 Room Air 10/29/17 14:47 98.9 98 20 95/62 (73) 99 Physical Exam GENERAL: Elderly male, laying in bed, he appears to be pale, chronically ill and fatigued. SKIN: No rashes, ecchymoses or lesions. Cool and dry. HEAD: Atraumatic. Normocephalic. No temporal or scalp tenderness. EYES: Pupils equal round and reactive. Extraocular motions intact. No scleral icterus. No injection or drainage. ENT: Nose without bleeding, purulent drainage or septal hematoma. Throat without erythema, tonsillar hypertrophy or exudate. Uvula midline. Airway patent. NECK: Trachea midline. No JVD or lymphadenopathy. Supple, nontender, no meningeal signs. CARDIOVASCULAR: Regular rate and rhythm without murmurs, gallops, or rubs. RESPIRATORY: Clear to auscultation. Breath sounds equal bilaterally. No wheezes , rales, or rhonchi. GASTROINTESTINAL: Protuberant abdomen, abdomen soft, non-tender, nondistended. No hepato-splenomegaly, or palpable masses. No guarding. MUSCULOSKELETAL: Generally decreased muscle mass and muscle atrophy, extremities without clubbing, cyanosis. No joint tenderness, effusion, or edema noted. No calf tenderness. Negative Homans sign bilaterally. NEUROLOGICAL: Awake and alert. Cranial nerves II through XII intact. Motor and sensory grossly within normal limits. Five out of 5 muscle strength in all muscle groups. Normal speech. Bilateral lower extremity edema. Laboratory Laboratory Tests Test 10/29/17 15:10 White Blood Count 6.7 Red Blood Count 2.32 Hemoglobin 6.4 Hematocrit 19.4 Mean Corpuscular Volume 83.8 Mean Corpuscular Hemoglobin 27.7 Mean Corpuscular Hemoglobin Concent 33.0 Red Cell Distribution Width 21.9 Platelet Count 241 Mean Platelet Volume 7.3 CBC Comment AUTO DIFF Differential Total Cells Counted 100 Neutrophils % (Manual) 90 Band Neutrophils % 2 Lymphocytes % 2 Monocytes % 6 Neutrophils # (Manual) 6.2 Differential Comment FINAL DIFF MANUAL Platelet Estimate NORMAL Platelet Morphology Comment NORMAL Ovalocytes 2+ Blood Urea Nitrogen 21 Creatinine 1.02 Random Glucose 143 Total Protein 5.7 Albumin 1.6 Calcium Level 8.8 Alkaline Phosphatase 287 Aspartate Amino Transf (AST/SGOT) 43 Alanine Aminotransferase (ALT/SGPT) 26 Total Bilirubin 0.8 Sodium Level 135 Potassium Level 4.2 Chloride Level 102 Carbon Dioxide Level 22.6 Anion Gap 10 Estimat Glomerular Filtration Rate 73 Total Creatine Kinase 199 Thyroid Stimulating Hormone 3rd Gen 1.260 Result Diagram: 10/29/17 1510 10/29/[address] scan of the head without contrast dated 10/16/2017: No acute intracranial abnormalities noted. Chest x-ray dated 10/16/2017: Trace bibasilar atelectasis. Otherwise within normal limits. Assessment and Plan Assessment and Plan Mr. Sheffield is a 67-year-old man with a history of hypertension, diabetes mellitus, tobaccoism and chronic normocytic anemia. He also has some degree of chronic renal insufficiency. This is his second hospitalization in 1 month for symptomatic anemia and generalized weakness. Last night he fell and was unable to get up. Upon presentation to the emergency department he was noted to have a hemoglobin of 6.4 g/dL without evidence of leukopenia or thrombocytopenia. The patient has been admitted to the hospital for red cell transfusion, anemia workup is ongoing. Several weeks ago he underwent a colonoscopy which revealed no evidence of colonic pathology to suggest a colonic source of blood loss. Plan: 1. Anemia: I requested serum iron studies to be performed including TIBC, serum iron level, percent iron saturation and ferritin levels. Folic acid levels and vitamin B12 levels have also been requested. I also requested serum protein electro pheresis. His peripheral smear will be reviewed and if there are dysplastic or dysmorphic findings identified a bone marrow biopsy will be obtained. And LDH will also be added to his blood work. Potential etiologies include chronic renal insufficiency, iron deficiency related to GI losses, or primary bone marrow disorder. Discussed Condition With The patient. Steven Farrar MD Oct 30, 2017 08:10
[2017-10-30 10:33] LABS: AUTOMATED NEUTROPHIL # 5.2 TH/MM3 (1.8-7.7); BASOPHIL # 0.1 TH/MM3 (0-0.2); BASOPHIL % 1.1 % (0.0-2.0); EOSINOPHIL % 0.1 % (0.0-4.0); HEMATOCRIT 25.7 % (39.0-51.0); HEMOGLOBIN 8.7 GM/DL (13.0-17.0); LYMPH % 14.2 % (9.0-44.0); MEAN CELL VOLUME 83.9 FL (80.0-100.0); MEAN CORPUSCULAR HEMOGLOBIN 28.5 PG (27.0-34.0); MEAN PLATELET VOLUME 7.1 FL (7.0-11.0); MONO % 12.2 % (0.0-8.0); MONOCYTE # 0.9 TH/MM3 (0-0.9); NEUT % 72.4 % (16.0-70.0); PLATELET COUNT 231 TH/MM3 (150-450); RED BLOOD COUNT 3.06 MIL/MM3 (4.50-5.90); RED CELL DISTRIBUTION WIDTH 19.8 % (11.6-17.2); WHITE BLOOD COUNT 7.1 TH/MM3 (4.0-11.0)
[2017-10-30 10:52] LABS: ALBUMIN 1.7 GM/DL (3.4-5.0); ALT (GPT) 26 U/L (12-78); AST (GOT) 37 U/L (15-37); BICARBONATE 22.8 MEQ/L (21.0-32.0); BLOOD UREA NITROGEN 19 MG/DL (7-18); CALCIUM 8.9 MG/DL (8.5-10.1); CHLORIDE 100 MEQ/L (98-107); CREATININE 1.04 MG/DL (0.60-1.30); GLOMERULAR FILTRATION RATE 71 ML/MIN (>89); GLUCOSE,RANDOM 189 MG/DL (74-106); MAGNESIUM 1.7 MG/DL (1.5-2.5); PHOSPHORUS 3.7 MG/DL (2.5-4.9); SODIUM (NA) 134 MEQ/L (136-145)
[2017-10-30 10:55] LABS: ALKALINE PHOSPHATASE 305 U/L (45-117); FREE T4 1.22 NG/DL (0.76-1.46); TOTAL BILIRUBIN ADULT 0.9 MG/DL (0.2-1.0); TOTAL PROTEIN 5.7 GM/DL (6.4-8.2)
[2017-10-30 11:01] LABS: IRON (FE) 28 MCG/DL (65-175)
[2017-10-30 11:26] LABS: % SATURATION IRON PROFILE 15.4 % (20-50); FERRITIN 2887 NG/ML (26-388); FOLATE 17.7 NG/ML (3.1-17.5); TOTAL IRON BINDING CAPACITY 182 MCG/DL (250-450)
[2017-10-30 12:00] VITALS: BP 136/73; PULSE 79; O2SAT 96
--- NOTE | 2017-10-30 13:57 | HHI.PR ---
Subjective Remarks This is a 67-year-old male with past medical history of hypertension, hyperlipidemia, diabetes mellitus, previous GI bleed who presents today to [facility] complaining of generalized weakness and difficulty ambulating. 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 The patient states that he has been feeling very tired, dizzy for the past few days. Denies any dizziness. The patient denies any melanotic stools or bright red blood per rectum. The patient was recently admitted on October 17 for GI bleeding. GI was consulted then and the patient underwent a colonoscopy which showed diverticulosis, rectal polyps, hemorrhoids. The patient otherwise denies any chest pain, shortness of breath, nausea, vomiting, abdominal pain. 6-8 SEEN BY ONCOLOGY TODAY MULTIPLE LABS ORDERED NEEDS BONE MARROW BIOPSY AM LABS HAS BEEN TRANSFUSED CONTINUE PT AND OT DUE TO FALL Objective Vitals Vital Signs Date Time Temp Pulse Resp B/P (MAP) Pulse Ox O2 Delivery O2 Flow Rate FiO2 10/30/17 08:00 98.6 75 18 100/56 (71) 95 10/30/17 00:00 98.0 80 17 113/62 (79) 96 10/29/17 23:17 98.5 76 18 118/69 (85) 96 10/29/17 22:49 98.5 78 18 118/69 96 10/29/17 21:00 98.0 71 18 109/66 100 10/29/17 19:10 98.2 77 14 110/63 (79) 98 Room Air 10/29/17 18:31 97.7 74 17 92/56 97 10/29/17 18:16 97.8 73 18 90/55 97 10/29/17 17:34 16 10/29/17 17:02 98.1 70 16 91/58 (69) 98 Room Air 10/29/17 15:43 89 16 98 Room Air 10/29/17 15:20 99 Room Air 10/29/17 14:47 98.9 98 20 95/62 (73) 99 I/O 10/29/17 10/29/17 10/29/17 10/30/17 10/30/17 10/30/17 07:00 15:00 23:00 07:00 15:00 23:00 Intake Total 415 ml 640 ml Output Total 700 ml Balance 415 ml -60 ml Intake Oral 240 ml Packed Cells 400 ml 400 ml Blood Product IV Normal Saline Flush 15 ml Output Urine Total 700 ml Result Diagram: 10/30/17 1025 10/30/17 1025 Other Results Laboratory Tests Test 10/29/17 15:10 10/30/17 10:25 White Blood Count 6.7 TH/MM3 7.1 TH/MM3 Red Blood Count 2.32 MIL/MM3 3.06 MIL/MM3 Hemoglobin 6.4 GM/DL 8.7 GM/DL Hematocrit 19.4 % 25.7 % Mean Corpuscular Volume 83.8 FL 83.9 FL Mean Corpuscular Hemoglobin 27.7 PG 28.5 PG Mean Corpuscular Hemoglobin Concent 33.0 % 34.0 % Red Cell Distribution Width 21.9 % 19.8 % Platelet Count 241 TH/MM3 231 TH/MM3 Mean Platelet Volume 7.3 FL 7.1 FL CBC Comment AUTO DIFF DIFF FINAL Differential Total Cells Counted 100 Neutrophils % (Manual) 90 % Band Neutrophils % 2 % Lymphocytes % 2 % Monocytes % 6 % Neutrophils # (Manual) 6.2 TH/MM3 Differential Comment FINAL DIFF MANUAL Platelet Estimate NORMAL Platelet Morphology Comment NORMAL Ovalocytes 2+ Blood Urea Nitrogen 21 MG/DL 19 MG/DL Creatinine 1.02 MG/DL 1.04 MG/DL Random Glucose 143 MG/DL 189 MG/DL Total Protein 5.7 GM/DL 5.7 GM/DL Albumin 1.6 GM/DL 1.7 GM/DL Calcium Level 8.8 MG/DL 8.9 MG/DL Alkaline Phosphatase 287 U/L 305 U/L Aspartate Amino Transf (AST/SGOT) 43 U/L 37 U/L Alanine Aminotransferase (ALT/SGPT) 26 U/L 26 U/L Total Bilirubin 0.8 MG/DL 0.9 MG/DL Sodium Level 135 MEQ/L 134 MEQ/L Potassium Level 4.2 MEQ/L 4.5 MEQ/L Chloride Level 102 MEQ/L 100 MEQ/L Carbon Dioxide Level 22.6 MEQ/L 22.8 MEQ/L Anion Gap 10 MEQ/L 11 MEQ/L Estimat Glomerular Filtration Rate 73 ML/MIN 71 ML/MIN Total Creatine Kinase 199 U/L Thyroid Stimulating Hormone 3rd Gen 1.260 uIU/ML Neutrophils (%) (Auto) 72.4 % Lymphocytes (%) (Auto) 14.2 % Monocytes (%) (Auto) 12.2 % Eosinophils (%) (Auto) 0.1 % Basophils (%) (Auto) 1.1 % Neutrophils # (Auto) 5.2 TH/MM3 Lymphocytes # (Auto) 1.0 TH/MM3 Monocytes # (Auto) 0.9 TH/MM3 Eosinophils # (Auto) 0.0 TH/MM3 Basophils # (Auto) 0.1 TH/MM3 Phosphorus Level 3.7 MG/DL Magnesium Level 1.7 MG/DL Iron Level 28 MCG/DL Total Iron Binding Capacity 182 MCG/DL Percent Iron Saturation 15.4 % Ferritin 2887 NG/ML Vitamin B12 Level 737 PG/ML Folate 17.7 NG/ML Free Thyroxine 1.22 NG/DL Objective Remarks GENERAL: Awake alert and oriented 3 talkative and cooperative SKIN: Warm and dry. HEAD: Atraumatic. Normocephalic. EYES: Pupils equal and round. No scleral icterus. No injection or drainage. Extraocular muscles intact ENT: No nasal bleeding or discharge. Mucous membranes pink and moist. Oral mucosa is moist tongue is midline NECK: Trachea midline. No JVD. Tongue is midline neck is supple CARDIOVASCULAR: Regular rate and rhythm. S1-S2 no S3 or S4 RESPIRATORY: No accessory muscle use. Clear to auscultation. Breath sounds equal bilaterally. GASTROINTESTINAL: Abdomen soft, non-tender, nondistended. Hepatic and splenic margins not palpable. MUSCULOSKELETAL: Extremities without clubbing, cyanosis, or edema. No obvious deformities. NEUROLOGICAL: Awake and alert. No obvious cranial nerve deficits. Motor grossly within normal limits. 4 out of 5 muscle strength in the arms and legs. Normal speech. PSYCHIATRIC: Appropriate mood and affect; insight and judgment normal. Medications and IVs Current Medications Sodium Chloride (NS Flush) 2 ml UNSCH PRN IV FLUSH FLUSH AFTER USING IV ACCESS Last administered on 10/29/17at 15:41; Start 10/29/17 at 15:00 Sodium Chloride 250 ml @ 15 mls/hr ONCE ONCE IV Last administered on at 18:14; Start 10/29/17 at 16:30; Stop 10/30/17 at 09:09; Status DC Morphine Sulfate (Morphine Inj) 2 mg ONCE ONCE IV PUSH Last administered on 10/29/17at 17:29; Start 10/29/17 at 17:15; Stop 10/29/17 at 17:16; Status DC Prochlorperazine Edisylate (Compazine Inj) 10 mg ONCE ONCE IV PUSH Last administered on 10/29/17at 17:30; Start 10/29/17 at 17:15; Stop 10/29/17 at 17:16; Status DC Dextrose (D50w (Vial) Inj) 50 ml UNSCH PRN IV PUSH HYPOGLYCEMIA-SEE COMMENTS; Start 10/29/17 at 19:45 Glucagon (Glucagon Inj) 1 mg UNSCH PRN OTHER HYPOGLYCEMIA-SEE COMMENTS; Start 10/29/17 at 19:45 Insulin Aspart (NovoLOG SUPPLEMENTAL SCALE) 1 ACHS SLIDING SCALE SQ ; Start 10/29/17 at 21:00 A/P Problem List: (1) Symptomatic anemia ICD Code: D64.9 - Anemia, unspecified Plan: Hemoglobin on presentation 6.4. Acute on chronic anemia. There is not much evidence of bleeding. Consult hematology. Consider GI consult if Hemoccult positive. As per ED report the patient was Hemoccult negative. Transfuse 2 units of packed red blood cells. Has been seen by hematology oncology Multiple labs have been ordered May need bone marrow biopsy due to marrow issues (2) Hypotension ICD Code: I95.9 - Hypotension, unspecified Status: Acute Plan: Patient with systolic blood pressure in the 90s. Status post 8 250 mL's IV bolus with normal saline. Patient to get 2 units of PRBCs. Continue to monitor vital signs. (3) DM (diabetes mellitus) ICD Code: E11.9 - Type 2 diabetes mellitus without complications Plan: Patient blood sugar seems to be stable. The patient states that he is not on any medications and that he used to have diabetes but he does not anymore. We will place on SSI with insulin NovoLog. (4) Hyperlipidemia ICD Code: E78.5 - Hyperlipidemia Status: Acute Plan: Not on a statin. Check fasting lipid profile. We will start the low-dose statin since patient is a diabetic. (5) Hypertension ICD Code: I10 - Hypertension Status: Acute Plan: Patient hypotensive at this time and not on any antihypertensives at home. (6) Tobacco abuse ICD Code: Z72.0 - Tobacco abuse Status: Acute Plan: Advised smoking cessation. I will Rx nicotine patch. Recommended smoking cessation (7) Weakness ICD Code: R53.1 - Weakness Plan: Likely secondary to symptomatic anemia. Consult PT. and physical therapy and occupational therapy to eval and treat Assessment and Plan Continue GI and DVT prophylaxis A.m. labs Discharge Planning Pending hematology oncology Problem Qualifiers (1) Hypotension: Qualified Codes: I95.9 - Hypotension, unspecified (2) DM (diabetes mellitus): Qualified Codes: E11.9 - Type 2 diabetes mellitus without complications (3) Hyperlipidemia: Qualified Codes: E78.5 - Hyperlipidemia, unspecified Parish Randolph DO Oct 30, 2017 13:56
[2017-10-30] MEDS ORDERED: LACTULOSE SYRUP 20 GM/30 ML CUP PO PRN (14:00)
[2017-10-30] MEDS ORDERED: ACETAMINOPHEN/HYDROcodone 325 MG/10 MG TAB PO PRN (14:00)
[2017-10-30] MEDS ORDERED: BISACODYL 10 MG SUPP RECTAL PRN (14:00)
[2017-10-30] MEDS ORDERED: ACETAMINOPHEN/HYDROcodone 325 MG/5 MG TAB PO PRN (14:00)
[2017-10-30] MEDS ORDERED: MORPHINE SULFATE 2 MG/ML SYRINGE IV PUSH PRN ×2 (14:00)
[2017-10-30] MEDS ORDERED: SENNOSIDES 8.6 MG TAB PO PRN (14:00)
[2017-10-30] MEDS ORDERED: METOCLOPRAMIDE HCL 10 MG/2 ML VIAL IV PUSH PRN (14:00)
[2017-10-30] MEDS ORDERED: MAGNESIUM HYDROXIDE SUSP 30 ML CUP PO PRN (14:00)
[2017-10-30] MEDS ORDERED: NALOXONE HCL 0.4 MG/ML AMP IV PUSH PRN (14:00)
[2017-10-30] MEDS ORDERED: SODIUM CHLORIDE 0.9% FLUSH 10 ML FLUSH IV FLUSH PRN (14:00)
[2017-10-30] MEDS ORDERED: ONDANSETRON ODT 4 MG TAB PO PRN (14:15)
--- NOTE | 2017-10-30 14:42 | HHI.FF ---
Face to Face Verification Diagnosis: (1) Tobacco abuse (2) Hypertension (3) Weakness (4) Symptomatic anemia (5) Hypotension (6) LUIS (acute kidney injury) (7) Normochromic normocytic anemia Physical Therapy Order: Evaluate and Treat, Improve ambulation, Strength and gait training Occupational Therapy Order: Evaluate and Treat, Improve ADL, Gross motor coordination, Fine motor coordination Home Health Nursing Order: Signs/symptoms of disease process Medication education-adverse effect Nursing assessment with vital signs I have seen patient Pam Garcia on 10/30/17. My clinical findings support the need for the requested home health care services because: Deconditioned w/ increased weakness High risk of falls I certify that my clinical findings support that this patient is homebound because: Unsteady gait/balance Parish Randolph DO Oct 30, 2017 14:42
[2017-10-30] MEDS ORDERED: WALKER WHEELS/F1 MIS (15:23)
[2017-10-30 16:00] VITALS: BP 114/75; PULSE 83; RESP 18; TEMP 98.5; O2SAT 95
[2017-10-30 16:26] LABS: HEMOGLOBIN A1C 5.6 % (4.3-6.0)
[2017-10-30 20:00] VITALS: BP 94/53; PULSE 74; RESP 20; TEMP 97.3; O2SAT 95
[2017-10-30] MEDS: DOCUSATE SODIUM 50 MG/SENNA 8.6 MG TAB PO SCH (20:54)
[2017-10-30] MEDS: SODIUM CHLORIDE 0.9% FLUSH 10 ML FLUSH IV FLUSH SCH (20:57)
[2017-10-31] VITALS: BP 113/61; PULSE 87; RESP 20; TEMP 99.1; O2SAT 97
[2017-10-31 04:00] VITALS: BP 99/56; PULSE 73; RESP 20; TEMP 98; O2SAT 96
[2017-10-31 08:00] VITALS: BP 93/52; PULSE 72; RESP 16; TEMP 98.3; O2SAT 92
[2017-10-31] MEDS: INSULIN ASPART SUPPLEMENTAL SCALE SQ SCH ×2 (08:00→12:00)
[2017-10-31] MEDS: SODIUM CHLORIDE 0.9% FLUSH 10 ML FLUSH IV FLUSH SCH (08:59)
[2017-10-31] MEDS: DOCUSATE SODIUM 50 MG/SENNA 8.6 MG TAB PO SCH (09:00)
--- NOTE | 2017-10-31 09:09 | HHI.FF ---
Face to Face Verification Diagnosis: (1) Tobacco abuse (2) Gait instability (3) Normochromic normocytic anemia (4) LUIS (acute kidney injury) (5) DM (diabetes mellitus) (6) Hypertension (7) Weakness (8) Hyperlipidemia (9) Anemia (10) Symptomatic anemia (11) Diabetes mellitus Home Health Nursing Order: Medical education Signs/symptoms of disease process Nursing assessment with vital signs I have seen patient Pam Garcia on 10/31/17. My clinical findings support the need for the requested home health care services because: Med compliance is questionable I certify that my clinical findings support that this patient is homebound because: Impaired cognitive ability/safety Unsteady gait/balance Parish Randolph DO Oct 31, 2017 09:09
--- NOTE | 2017-10-31 11:14 | HHI.PR ---
Subjective Remarks This is a 67-year-old male with past medical history of hypertension, hyperlipidemia, diabetes mellitus, previous GI bleed who presents today to [facility] complaining of generalized weakness and difficulty ambulating. 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 The patient states that he has been feeling very tired, dizzy for the past few days. Denies any dizziness. The patient denies any melanotic stools or bright red blood per rectum. The patient was recently admitted on October 17 for GI bleeding. GI was consulted then and the patient underwent a colonoscopy which showed diverticulosis, rectal polyps, hemorrhoids. The patient otherwise denies any chest pain, shortness of breath, nausea, vomiting, abdominal pain. 10-30 SEEN BY ONCOLOGY TODAY MULTIPLE LABS ORDERED NEEDS BONE MARROW BIOPSY AM LABS HAS BEEN TRANSFUSED CONTINUE PT AND OT DUE TO FALL 10-31 PATIENT NEEDS ONCOLOGY WORK UP FOR BONE MARROW ISSUES WANTS TO LEAVE= PATIENT IS NOT VERY MOBILE AT THIS TIME NEEDS PT AND OT DW RN AND PT NOT SAFE FOR DC AT THIS TIME Objective Vitals Vital Signs Date Time Temp Pulse Resp B/P (MAP) Pulse Ox O2 Delivery O2 Flow Rate FiO2 10/31/17 08:00 98.3 72 16 93/52 (66) 92 10/31/17 04:00 98.0 73 20 99/56 (70) 96 10/31/17 00:00 99.1 87 20 113/61 (78) 97 10/30/17 20:00 97.3 74 20 94/53 (67) 95 10/30/17 16:00 98.5 83 18 114/75 (88) 95 10/30/17 12:00 79 136/73 (94) 96 I/O 10/30/17 10/30/17 10/30/17 10/31/17 10/31/17 10/31/17 07:00 15:00 23:00 07:00 15:00 23:00 Intake Total 640 ml Output Total 700 ml 600 ml Balance -60 ml -600 ml Intake Oral 240 ml Packed Cells 400 ml Output Urine Total 700 ml 600 ml Result Diagram: 10/30/17 1025 10/30/17 1025 Other Results Laboratory Tests Test 10/29/17 15:10 10/30/17 10:25 White Blood Count 6.7 TH/MM3 7.1 TH/MM3 Red Blood Count 2.32 MIL/MM3 3.06 MIL/MM3 Hemoglobin 6.4 GM/DL 8.7 GM/DL Hematocrit 19.4 % 25.7 % Mean Corpuscular Volume 83.8 FL 83.9 FL Mean Corpuscular Hemoglobin 27.7 PG 28.5 PG Mean Corpuscular Hemoglobin Concent 33.0 % 34.0 % Red Cell Distribution Width 21.9 % 19.8 % Platelet Count 241 TH/MM3 231 TH/MM3 Mean Platelet Volume 7.3 FL 7.1 FL CBC Comment AUTO DIFF DIFF FINAL Differential Total Cells Counted 100 Neutrophils % (Manual) 90 % Band Neutrophils % 2 % Lymphocytes % 2 % Monocytes % 6 % Neutrophils # (Manual) 6.2 TH/MM3 Differential Comment FINAL DIFF MANUAL Platelet Estimate NORMAL Platelet Morphology Comment NORMAL Ovalocytes 2+ Blood Urea Nitrogen 21 MG/DL 19 MG/DL Creatinine 1.02 MG/DL 1.04 MG/DL Random Glucose 143 MG/DL 189 MG/DL Total Protein 5.7 GM/DL 5.7 GM/DL Albumin 1.6 GM/DL 1.7 GM/DL Calcium Level 8.8 MG/DL 8.9 MG/DL Alkaline Phosphatase 287 U/L 305 U/L Aspartate Amino Transf (AST/SGOT) 43 U/L 37 U/L Alanine Aminotransferase (ALT/SGPT) 26 U/L 26 U/L Total Bilirubin 0.8 MG/DL 0.9 MG/DL Sodium Level 135 MEQ/L 134 MEQ/L Potassium Level 4.2 MEQ/L 4.5 MEQ/L Chloride Level 102 MEQ/L 100 MEQ/L Carbon Dioxide Level 22.6 MEQ/L 22.8 MEQ/L Anion Gap 10 MEQ/L 11 MEQ/L Estimat Glomerular Filtration Rate 73 ML/MIN 71 ML/MIN Total Creatine Kinase 199 U/L Thyroid Stimulating Hormone 3rd Gen 1.260 uIU/ML Neutrophils (%) (Auto) 72.4 % Lymphocytes (%) (Auto) 14.2 % Monocytes (%) (Auto) 12.2 % Eosinophils (%) (Auto) 0.1 % Basophils (%) (Auto) 1.1 % Neutrophils # (Auto) 5.2 TH/MM3 Lymphocytes # (Auto) 1.0 TH/MM3 Monocytes # (Auto) 0.9 TH/MM3 Eosinophils # (Auto) 0.0 TH/MM3 Basophils # (Auto) 0.1 TH/MM3 Phosphorus Level 3.7 MG/DL Magnesium Level 1.7 MG/DL Hemoglobin A1c 5.6 % Iron Level 28 MCG/DL Total Iron Binding Capacity 182 MCG/DL Percent Iron Saturation 15.4 % Ferritin 2887 NG/ML Vitamin B12 Level 737 PG/ML Folate 17.7 NG/ML Free Thyroxine 1.22 NG/DL Objective Remarks GENERAL: Awake alert and oriented 3 talkative and cooperative SKIN: Warm and dry. HEAD: Atraumatic. Normocephalic. EYES: Pupils equal and round. No scleral icterus. No injection or drainage. Extraocular muscles intact ENT: No nasal bleeding or discharge. Mucous membranes pink and moist. Oral mucosa is moist tongue is midline NECK: Trachea midline. No JVD. Tongue is midline neck is supple CARDIOVASCULAR: Regular rate and rhythm. S1-S2 no S3 or S4 RESPIRATORY: No accessory muscle use. Clear to auscultation. Breath sounds equal bilaterally. GASTROINTESTINAL: Abdomen soft, non-tender, nondistended. Hepatic and splenic margins not palpable. MUSCULOSKELETAL: Extremities without clubbing, cyanosis, or edema. No obvious deformities. NEUROLOGICAL: Awake and alert. No obvious cranial nerve deficits. Motor grossly within normal limits. 4 out of 5 muscle strength in the arms and legs. Normal speech. PSYCHIATRIC: Appropriate mood and affect; insight and judgment normal. Medications and IVs Current Medications Sodium Chloride (NS Flush) 2 ml UNSCH PRN IV FLUSH FLUSH AFTER USING IV ACCESS Last administered on 10/29/17 15:41; Start 10/29/17 at 15:00 Sodium Chloride 250 ml @ 15 mls/hr ONCE ONCE IV Last administered on at 18:14; Start 10/29/17 at 16:30; Stop 10/30/17 at 09:09; Status DC Morphine Sulfate (Morphine Inj) 2 mg ONCE ONCE IV PUSH Last administered on 17:29; Start 10/29/17 at 17:15; Stop 10/29/17 at 17:16; Status DC Prochlorperazine Edisylate (Compazine Inj) 10 mg ONCE ONCE IV PUSH Last administered on 10/29/17 17:30; Start 10/29/17 at 17:15; Stop 10/29/17 at 17:16; Status DC Dextrose (D50w (Vial) Inj) 50 ml UNSCH PRN IV PUSH HYPOGLYCEMIA-SEE COMMENTS; Start 10/29/17 at 19:45 Glucagon (Glucagon Inj) 1 mg UNSCH PRN OTHER HYPOGLYCEMIA-SEE COMMENTS; Start 10/29/17 at 19:45 Insulin Aspart (NovoLOG SUPPLEMENTAL SCALE) 1 ACHS SLIDING SCALE SQ ; Start 10/29/17 at 21:00 Sodium Chloride (NS Flush) 2 ml UNSCH PRN IV FLUSH FLUSH AFTER USING IV ACCESS ; Start 10/30/17 at 14:00 Sodium Chloride (NS Flush) 2 ml BID IV FLUSH Last administered on 10/31/17at 08: 59; Start 10/30/17 at 21:00 Ondansetron HCl (Zofran Odt) 4 mg Q6H PRN PO NAUSEA OR VOMITING; Start at 14:15 Metoclopramide HCl (Reglan Inj) 5 mg Q6H PRN IV PUSH NAUSEA OR VOMITING; Start 10/30/17 at 14:00 Acetaminophen/ Hydrocodone Bitart ([place] 5-325 Mg) 1 tab Q4H PRN PO PAIN SCALE 3 TO 5; Start 10/30/17 at 14:00 Acetaminophen/ Hydrocodone Bitart ([place] 10-325 Mg) 1 tab Q4H PRN PO PAIN SCALE 6 TO 10; Start 10/30/17 at 14:00 Morphine Sulfate (Morphine Inj) 2 mg Q3H PRN IV PUSH Pain 3-5; if unable to take PO; Start 10/30/17 at 14:00 Morphine Sulfate (Morphine Inj) 4 mg Q3H PRN IV PUSH Pain 6-10;if unable to take PO; Start 10/30/17 at 14:00 Naloxone HCl (Narcan Inj) 0.4 mg UNSCH PRN IV PUSH SEE LABEL COMMENTS; Start at 14:00 Senna/Docusate Sodium (Lory-Colace) 1 tab BID PO Last administered on 10/30/17at 20:54; Start 10/30/17 at 21:00 Magnesium Hydroxide (Milk Of Magnesia Liq) 30 ml Q12H PRN PO Mild constipation ; Start 10/30/17 at 14:00 Sennosides (Senokot) 17.2 mg Q12H PRN PO Moderate constipation; Start 10/30/17 at 14:00 Bisacodyl (Dulcolax Supp) 10 mg DAILY PRN RECTAL SEVERE CONSITIPATION; Start at 14:00 Lactulose (Lactulose Liq) 30 ml DAILY PRN PO SEVERE CONSITIPATION; Start at 14:00 A/P Problem List: (1) Symptomatic anemia ICD Code: D64.9 - Anemia, unspecified Plan: Hemoglobin on presentation 6.4. Acute on chronic anemia. There is not much evidence of bleeding. Consult hematology. Consider GI consult if Hemoccult positive. As per ED report the patient was Hemoccult negative. Transfuse 2 units of packed red blood cells. Has been seen by hematology oncology Multiple labs have been ordered May need bone marrow biopsy due to marrow issues (2) Hypotension ICD Code: I95.9 - Hypotension, unspecified Status: Acute Plan: Patient with systolic blood pressure in the 90s. Status post 8 250 mL's IV bolus with normal saline. Patient to get 2 units of PRBCs. Continue to monitor vital signs. (3) DM (diabetes mellitus) ICD Code: E11.9 - Type 2 diabetes mellitus without complications Plan: Patient blood sugar seems to be stable. The patient states that he is not on any medications and that he used to have diabetes but he does not anymore. We will place on SSI with insulin NovoLog. (4) Hyperlipidemia ICD Code: E78.5 - Hyperlipidemia Status: Acute Plan: Not on a statin. Check fasting lipid profile. We will start the low-dose statin since patient is a diabetic. (5) Hypertension ICD Code: I10 - Hypertension Status: Acute Plan: Patient hypotensive at this time and not on any antihypertensives at home. (6) Tobacco abuse ICD Code: Z72.0 - Tobacco abuse Status: Acute Plan: Advised smoking cessation. I will Rx nicotine patch. Recommended smoking cessation (7) Weakness ICD Code: R53.1 - Weakness Plan: Likely secondary to symptomatic anemia. Consult PT. and physical therapy and occupational therapy to eval and treat (8) Noncompliance ICD Code: Z91.19 - Patient's noncompliance with other medical treatment and regimen Plan: THREATENING TO LEAVE AMA DON'T THINK HE IS STRONG ENOUGH TO DO THIS ON HIS OWN AT THIS TIME Assessment and Plan Continue GI and DVT prophylaxis A.m. labs Discharge Planning Pending hematology oncology Problem Qualifiers (1) Hypotension: Qualified Codes: I95.9 - Hypotension, unspecified (2) DM (diabetes mellitus): Qualified Codes: E11.9 - Type 2 diabetes mellitus without complications (3) Hyperlipidemia: Qualified Codes: E78.5 - Hyperlipidemia, unspecified Parish Randolph DO Oct 31, 2017 11:14
[2017-10-31 11:49] LABS: AUTOMATED NEUTROPHIL # 4.6 TH/MM3 (1.8-7.7); BASOPHIL % 0.3 % (0.0-2.0); EOSINOPHIL % 0.1 % (0.0-4.0); HEMATOCRIT 24.9 % (39.0-51.0); HEMOGLOBIN 8.4 GM/DL (13.0-17.0); LYMPH % 11.5 % (9.0-44.0); LYMPHOCYTE # 0.7 TH/MM3 (1.0-4.8); MEAN CELL VOLUME 83.6 FL (80.0-100.0); MEAN CORPUSCULAR HEMOGLOBIN 28.4 PG (27.0-34.0); MEAN CORPUSCULAR HGB CONC 33.9 % (32.0-36.0); MEAN PLATELET VOLUME 7.4 FL (7.0-11.0); MONO % 13.8 % (0.0-8.0); MONOCYTE # 0.9 TH/MM3 (0-0.9); NEUT % 74.3 % (16.0-70.0); PLATELET COUNT 238 TH/MM3 (150-450); RED BLOOD COUNT 2.97 MIL/MM3 (4.50-5.90); RED CELL DISTRIBUTION WIDTH 19.5 % (11.6-17.2); WHITE BLOOD COUNT 6.2 TH/MM3 (4.0-11.0)
--- NOTE | 2017-10-31 11:51 | PD.ONC.PN ---
Subjective Subjective Remarks Afebrile overnight. patient resting in bed in [facility]. Wants to go home. denies obvious bleeding. denies dizziness. Objective Data Date Time Temp Pulse Resp B/P (MAP) Pulse Ox O2 Delivery O2 Flow Rate FiO2 10/31/17 08:00 98.3 72 16 93/52 (66) 92 10/31/17 04:00 98.0 73 20 99/56 (70) 96 10/31/17 00:00 99.1 87 20 113/61 (78) 97 10/30/17 20:00 97.3 74 20 94/53 (67) 95 10/30/17 16:00 98.5 83 18 114/75 (88) 95 10/30/17 12:00 79 136/73 (94) 96 10/31/17 10/31/17 10/31/17 07:00 15:00 23:00 Output Total 600 ml Balance -600 ml Result Diagram: 10/30/17 1025 10/30/17 1025 Laboratory Results Laboratory Tests Test 10/31/17 11:14 Administered Medications Medications (Trade) Dose Ordered Sig/Daniel Route PRN Reason Start Time Stop Time Status Last Admin Dose Admin Sodium Chloride (NS Flush) 2 ml UNSCH PRN IV FLUSH FLUSH AFTER USING IV ACCESS 10/29/17 15:00 10/29/17 15:41 Sodium Chloride (NS Flush) 2 ml BID IV FLUSH 10/30/17 21:00 10/31/17 08:59 Senna/Docusate Sodium (Lory-Colace) 1 tab BID PO 10/30/17 21:00 10/30/17 20:54 Objective Remarks GENERAL: Middle aged male,sitting up in bed in [facility]. SKIN: Warm and dry. HEAD: Normocephalic. EYES: No injection or drainage. NECK: Supple, trachea midline. CARDIOVASCULAR: Regular rate and rhythm RESPIRATORY: Breath sounds equal bilaterally. No accessory muscle use. GASTROINTESTINAL: Abdomen soft, non-tender, nondistended. EXTREMITIES: No cyanosis MUSCULOSKELETAL: Adequate muscle tone. NEUROLOGICAL: No obvious focal deficit. Awake, alert, and oriented x3. Assessment/Plan Assessment 67y/o with severe anemia history of hypertension, diabetes mellitus, tobaccoism and chronic normocytic anemia. Plan 1. Anemia --iron studies indicate anemia of chronic disease, significantly elevated ferritin likely d/t some degree of liver derangement as he also has low albumin. --s/p colonoscopy several weeks ago, no evidence of colonic pathology to suggest colonic source of blood loss --B12 WNL --SPEP pending. --pathologist smear review pending. --may need bone marrow biopsy (could be obtained outpatient. --will check CBC today as well as retic count. would need to see that H/H is trending upward and ensure this patient has proper follow up prior to discharge Attending Statement As mackenzie, pt to follow up with Dr. Farrar as out pt. Temitope Ortega Oct 31, 2017 11:51 Arleen Shea MD Oct 31, 2017 13:53
[2017-10-31 12:00] VITALS: BP 101/61; PULSE 75; RESP 17; TEMP 97.8; O2SAT 92
[2017-10-31 12:07] LABS: ALBUMIN 1.6 GM/DL (3.4-5.0); AST (GOT) 27 U/L (15-37); BICARBONATE 23.2 MEQ/L (21.0-32.0); BLOOD UREA NITROGEN 19 MG/DL (7-18); CALCIUM 9.3 MG/DL (8.5-10.1); CHLORIDE 99 MEQ/L (98-107); CREATININE 0.89 MG/DL (0.60-1.30); GLOMERULAR FILTRATION RATE 86 ML/MIN (>89); GLUCOSE,RANDOM 180 MG/DL (74-106); MAGNESIUM 1.5 MG/DL (1.5-2.5); SODIUM (NA) 133 MEQ/L (136-145)
[2017-10-31 12:08] LABS: ALT (GPT) 26 U/L (12-78)
[2017-10-31 12:10] LABS: ALKALINE PHOSPHATASE 331 U/L (45-117); RETIC # 102.8 MIL/L (20.0-150.0); RETIC % 3.4 % (0.4-3.0); TOTAL BILIRUBIN ADULT 0.9 MG/DL (0.2-1.0); TOTAL PROTEIN 5.5 GM/DL (6.4-8.2)
--- NOTE | 2017-10-31 14:36 | PD.AMA ---
Against Medical Advice Note Diagnosis: (1) Tobacco abuse (2) Noncompliance (3) Gait instability (4) Anemia (5) Normochromic normocytic anemia (6) LUIS (acute kidney injury) (7) DM (diabetes mellitus) (8) Hypertension (9) Weakness (10) Hyperlipidemia (11) Symptomatic anemia (12) Diabetes mellitus (13) Neuropathy Discharge Disposition: Against Medical Advice Pt Condition on Discharge: Guarded Recommended Treatment Course NEEDS TO FOLLOW UP WITH PCP AND ONCOLOGY AMA Statement Patient Pam Garcia has decided to leave the hospital against medical advice. This patient has the capacity to refuse care and understands the risks of leaving, including permanent disability and/or , and has had an opportunity to ask questions about his condition. The patient has been informed that he may return for care at any time, and follow up has been arranged/ advised. Parish Randolph DO Oct 31, 2017 14:36
--- NOTE | 2017-10-31 14:42 | HHI.DS ---
Discharge Summary Admission Date Oct 29, 2017 at 17:50 Discharge Date: Oct 31, 2017 Admitting Diagnosis symptomatic anemia, hypotension. LEFT AMA (1) Symptomatic anemia ICD Code: D64.9 - Anemia, unspecified Diagnosis: Principal (2) Hypotension ICD Code: I95.9 - Hypotension, unspecified Diagnosis: Secondary Status: Acute (3) DM (diabetes mellitus) ICD Code: E11.9 - Type 2 diabetes mellitus without complications Diagnosis: Secondary (4) Hyperlipidemia ICD Code: E78.5 - Hyperlipidemia Diagnosis: Secondary Status: Acute (5) Hypertension ICD Code: I10 - Hypertension Diagnosis: Secondary Status: Acute (6) Tobacco abuse ICD Code: Z72.0 - Tobacco abuse Diagnosis: Secondary Status: Acute (7) Weakness ICD Code: R53.1 - Weakness Diagnosis: Principal (8) Noncompliance ICD Code: Z91.19 - Patient's noncompliance with other medical treatment and regimen Diagnosis: Principal Procedures NONE Brief History - From Admission This is a 67-year-old male with past medical history of hypertension, hyperlipidemia, diabetes mellitus, previous GI bleed who presents today to [facility] complaining of generalized weakness and difficulty ambulating. 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 The patient states that he has been feeling very tired, dizzy for the past few days. Denies any dizziness. The patient denies any melanotic stools or bright red blood per rectum. The patient was recently admitted on October 17 for GI bleeding. GI was consulted then and the patient underwent a colonoscopy which showed diverticulosis, rectal polyps, hemorrhoids. The patient otherwise denies any chest pain, shortness of breath, nausea, vomiting, abdominal pain. CBC/BMP: 10/31/17 1114 10/31/17 1114 Significant Findings Laboratory Tests Test 10/29/17 15:10 10/30/17 10:25 10/31/17 11:14 Red Blood Count 2.32 MIL/MM3 (4.50-5.90) 3.06 MIL/MM3 (4.50-5.90) 2.97 MIL/MM3 (4.50-5.90) Hemoglobin 6.4 GM/DL (13.0-17.0) 8.7 GM/DL (13.0-17.0) 8.4 GM/DL (13.0-17.0) Hematocrit 19.4 % (39.0-51.0) 25.7 % (39.0-51.0) 24.9 % (39.0-51.0) Red Cell Distribution Width 21.9 % (11.6-17.2) 19.8 % (11.6-17.2) 19.5 % (11.6-17.2) Neutrophils % (Manual) 90 % (16-70) Lymphocytes % 2 % (9-44) Ovalocytes 2+ (NORMAL) Blood Urea Nitrogen 21 MG/DL (7-18) 19 MG/DL (7-18) 19 MG/DL (7-18) Random Glucose 143 MG/DL (74-106) 189 MG/DL (74-106) 180 MG/DL (74-106) Total Protein 5.7 GM/DL (6.4-8.2) 5.7 GM/DL (6.4-8.2) 5.5 GM/DL (6.4-8.2) Albumin 1.6 GM/DL (3.4-5.0) 1.7 GM/DL (3.4-5.0) 1.6 GM/DL (3.4-5.0) Alkaline Phosphatase 287 U/L (45-117) 305 U/L (45-117) 331 U/L (45-117) Aspartate Amino Transf (AST/SGOT) 43 U/L (15-37) Sodium Level 135 MEQ/L (136-145) 134 MEQ/L (136-145) 133 MEQ/L (136-145) Estimat Glomerular Filtration Rate 73 ML/MIN (>89) 71 ML/MIN (>89) 86 ML/MIN (>89) Neutrophils (%) (Auto) 72.4 % (16.0-70.0) 74.3 % (16.0-70.0) Monocytes (%) (Auto) 12.2 % (0.0-8.0) 13.8 % (0.0-8.0) Iron Level 28 MCG/DL (65-175) Total Iron Binding Capacity 182 MCG/DL (250-450) Percent Iron Saturation 15.4 % (20-50) Ferritin 2887 NG/ML (26-388) Folate 17.7 NG/ML (3.1-17.5) Lymphocytes # (Auto) 0.7 TH/MM3 (1.0-4.8) Reticulocyte Count 3.4 % (0.4-3.0) Haptoglobin 216 MG/DL (30-200) PE at Discharge GENERAL: Awake alert and oriented 3 talkative and cooperative SKIN: Warm and dry. HEAD: Atraumatic. Normocephalic. EYES: Pupils equal and round. No scleral icterus. No injection or drainage. Extraocular muscles intact ENT: No nasal bleeding or discharge. Mucous membranes pink and moist. Oral mucosa is moist tongue is midline NECK: Trachea midline. No JVD. Tongue is midline neck is supple CARDIOVASCULAR: Regular rate and rhythm. S1-S2 no S3 or S4 RESPIRATORY: No accessory muscle use. Clear to auscultation. Breath sounds equal bilaterally. GASTROINTESTINAL: Abdomen soft, non-tender, nondistended. Hepatic and splenic margins not palpable. MUSCULOSKELETAL: Extremities without clubbing, cyanosis, or edema. No obvious deformities. NEUROLOGICAL: Awake and alert. No obvious cranial nerve deficits. Motor grossly within normal limits. 4 out of 5 muscle strength in the arms and legs. Normal speech. PSYCHIATRIC: Appropriate mood and affect; insight and judgment normal. Hospital Course This is a 67-year-old male with past medical history of hypertension, hyperlipidemia, diabetes mellitus, previous GI bleed who presents today to [facility] complaining of generalized weakness and difficulty ambulating. 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 The patient states that he has been feeling very tired, dizzy for the past few days. Denies any dizziness. The patient denies any melanotic stools or bright red blood per rectum. The patient was recently admitted on October 17 for GI bleeding. GI was consulted then and the patient underwent a colonoscopy which showed diverticulosis, rectal polyps, hemorrhoids. The patient otherwise denies any chest pain, shortness of breath, nausea, vomiting, abdominal pain. 6-8 SEEN BY ONCOLOGY TODAY MULTIPLE LABS ORDERED NEEDS BONE MARROW BIOPSY AM LABS HAS BEEN TRANSFUSED CONTINUE PT AND OT DUE TO FALL 6-9 PATIENT NEEDS ONCOLOGY WORK UP FOR BONE MARROW ISSUES WANTS TO LEAVE= PATIENT IS NOT VERY MOBILE AT THIS TIME NEEDS PT AND OT DW RN AND PT NOT SAFE FOR DC AT THIS TIME PATIENT DECIDED TO LEAVE AMA Pt Condition on Discharge: Guarded Discharge Disposition: Discharge Home (PATIENT LEFT AMA -FAMILY CAME TO ) Discharge Time: <= 30 minutes Discharge Instructions DIET: Follow Instructions for: Heart Healthy Diet, Diabetic Diet Speech Therapy-Diet Recommends: Regular New Medications: Walker with Front Wheels (Walker with Front Wheels) 1 Mis Mis EA .XX DIRECTED for MOBILITY, #1 0 Refills Additional Information PATIENT LEFT AMA Parish Randolph DO Oct 31, 2017 14:42
[2017-11-02 21:47] LABS: ALB/GLOB RATIO (SPE) 0.61 (1.39-2.23)
== END 2017-10-31 13:09 | disposition left against medical advice (07) | DRG 443 ==
LOC: NEPE 13:58 → NEDA 17:50 → N07A 21:32
PROVIDERS: ADMIT Hospitalist; ATTEND Hospitalist
PROC: 30233N1 Transfusion of Nonautologous Red Blood Cells into Peripheral Vein, Percutaneous Approach (ICD-10-PCS; principal; 2017-10-29)
DX: K76.9 Liver disease, unspecified (principal); E11.22 Type 2 diabetes mellitus with diabetic chronic kidney disease; I95.9 Hypotension, unspecified; E11.42 Type 2 diabetes mellitus with diabetic polyneuropathy; R63.0 Anorexia; D63.8 Anemia in other chronic diseases classified elsewhere; I12.9 Hypertensive chronic kidney disease with stage 1 through stage 4 chronic kidney disease, or unspecified chronic kidney disease; N18.9 Chronic kidney disease, unspecified; E78.5 Hyperlipidemia, unspecified; S80.211A Abrasion, right knee, initial encounter; E78.00 Pure hypercholesterolemia, unspecified; J45.909 Unspecified asthma, uncomplicated; G47.30 Sleep apnea, unspecified; R63.4 Abnormal weight loss; R60.0 Localized edema; H40.9 Unspecified glaucoma; F32.9 Major depressive disorder, single episode, unspecified; F17.210 Nicotine dependence, cigarettes, uncomplicated; F41.9 Anxiety disorder, unspecified; W19.XXXA Unspecified fall, initial encounter; Z91.19 Patient's noncompliance with other medical treatment and regimen
CPT/HCPCS: 36430; 80053; 82550; 82607; 82728; 82746; 82948; 83010; 83036; 83540; 83550; 83615; 83735; 84100; 84165; 84439; 84443; 85007; 85025; 85027; 85044; 86850; 86900; 86901; 86920; 96374; 96375; J0780; J2270; J7050; P9016